=== PATIENT | female | born 1985 | race Caucasian/White ===

== ENCOUNTER 2016-12-26 13:49 | Emergency (ER) | payer OTHER ==
[~2016-12-26 13:49] MED LIST: ADVI200T PO; BACT800T5 PO; IBUP800T23 PO; PERC5TAB6 PO; advair inhaler INH
[2016-12-26] MEDS ORDERED: BACTRIM 160MG/800MG DS TAB As Ordered ONE (14:53)
[2016-12-26] MEDS ORDERED: NORCO, ANEXSIA 5/325MG TABLET (HYDROcodone/ACETAMINOPHEN) As Ordered ONE (14:53)
--- NOTE | 2016-12-26 15:00 | EDDOCDS ---
Physician Documentation [facility] Name: Karolyn Correa Age: 31 yrs Sex: Female : 1985 Arrival Date: 12/26/2016 Time: 13:49 Bed TR5 Private MD: NO PRIMARY PHYSICIAN, . Disposition: 12/26/16 14:43 Discharged to Home/Self Care. Impression: Cellulitis of right upper limb. - Condition is Stable. - Discharge Instructions: Cellulitis, Abscess, [id number]. - Prescriptions for Naprosyn 500 mg Oral Tablet - take 1 tablet by ORAL route 2 times per day take with food; 30 tablet. Bactrim DS 800- 160 mg Oral Tablet - take 2 tablet by ORAL route every 12 hours for 7 days; 28 tablet. - Medication Reconciliation, Local Pharmacy Hours form. - [facility]; When: Call to arrange an appointment; Reason: Wound/Symptom Recheck, Recheck today's complaints, Worsening of conditions, Continuance of care. - Problem is new. - Symptoms are unchanged. Historical: - Allergies: no known allergies; - Home Meds: 1. none - PMHx: Anxiety; Asthma; Bipolar disorder; Borderline Personality Disorder; Hepatitis C; Psoriasis; Substance Abuse; - PSHx: Hysterectomy; - Social history: Smoking status: Patient uses tobacco products, current every day smoker. No barriers to communication noted, The patient speaks fluent Malaysian. - : The pt / caregiver states he / she is not on anticoagulants. Home medication list is obtained from the patient. - Exposure Risk Screening:: None identified. 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 7 in. (170.18 cm); Pain 10/10; 13:52 Body Mass Index 24.75 (71.67 kg, 170.18 cm) elp MDM: 14:41 Trimethoprim-Sulfamethoxazole (MRSA dose) 160 mg-800 mg (DS) 2 tabs PO once ordered. cc10 14:41 HYDROcodone-acetaminophen 5 mg-325 mg 2 tabs PO once ordered. cc10 Administered Medications: 14:56 Drug: HYDROcodone-acetaminophen 2 tabs [hydrocodone 5 mg-acetaminophen 325 mg tablet (2 jjr tabs)] Route: PO; 14:57 Drug: Trimethoprim-Sulfamethoxazole (MRSA dose) 2 tabs [sulfamethoxazole 800 jjr mg-trimethoprim 160 mg tablet (2 tabs)] Route: PO; Signatures: Geoffrey Winchester RN RN dwg Raymond, Jessica, RN RN jMg Garcia PA-C PA-C cc10 MTDD
--- NOTE | 2016-12-26 15:00 | EDDOCDS ---
Nurse's Notes [facility] Name: Karolyn Correa Age: 31 yrs Sex: Female : 1985 Arrival Date: 12/26/2016 Time: 13:49 Bed TR5 Private MD: NO PRIMARY PHYSICIAN, . Diagnosis: Cellulitis of right upper limb Presentation: 12/26 14:05 Presenting complaint: Patient states: Large, red, raised abscess to right forearm, has dwg gotten larger for 2-3 days. No drainage. Adult Sepsis Screening: The patient does not have new or worsening altered mentation. Patient's respiratory rate is less than 22. Systolic blood pressure is greater than 100. Patient has a qSOFA score of 0- Negative Sepsis Screen. Suicide/Homicide risk assessment- the patient denies having any suicidal and/or homicidal ideations and does not present with any other emotional, behavioral or mental health complaints. 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 Transition of care: patient was not received from another setting of care. 14:05 Acuity: VJ Level 4 dwg 14:05 Method Of Arrival: Walkin/Carried/Asstd dwg Triage Assessment: 14:08 General: Appears in no apparent distress. Pain: Pain currently is 10 out of 10 on a dwg pain scale. HIV screening NA for this visit Offered previously. 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 none - PMHx: Anxiety; Asthma; Bipolar disorder; Borderline Personality Disorder; Hepatitis C; Psoriasis; Substance Abuse; - PSHx: Hysterectomy; - Social history: Smoking status: Patient uses tobacco products, current every day smoker. No barriers to communication noted, The patient speaks fluent Pashto. - : The pt / caregiver states he / she is not on anticoagulants. Home medication list is obtained from the patient. - Exposure Risk Screening:: None identified. Screenin:57 Screening information is obtained from the patient. Fall risk: No risks identified. jjr Assistance ADL's: requires no assistance with activities of daily living. Abuse/DV Screen: The patient / caregiver reports he/she is: not in a situation that causes fear, pain or injury. Nutritional screening: No deficits noted. Advance Directives: There is no active DNR order. home support is adequate. Assessment: 14:57 General: Appears in no apparent distress, Behavior is appropriate for age, this senior copywriter jjr did not observe right arm. Vital Signs: 13:52 BP 168 / 63; Pulse 93; Resp 18; Temp 97.7; Pulse Ox 98% ; Weight 71.67 kg; Height 5 ft. elp 7 in. (170.18 cm); Pain 10/10; 13:52 Body Mass Index 24.75 (71.67 kg, 170.18 cm) elp Vitals: 13:52 Log In Time: December 26, 2016 at 13:50. elp ED Course: 13:51 Patient visited by Aleta Gastelum, TORY. elp 13:51 NO PRIMARY PHYSICIAN, . is Private Physician. elp 13:51 Patient moved to Waiting elp 13:53 Patient visited by Aleta Gastelum, TORY. elp 13:53 Patient moved to Pre RCE elp 14:07 Triage Initiated dwg 14:09 Patient moved to Triage 1 dwg 14:26 [facility] cc[facility] 14:26 Snehal Gonzalez MD is Attending Physician. cc10 14:35 Patient visited by Mg Fernandez PA-C. cc10 14:35 Patient visited by Mg Fernandez PA-C. cc10 14:43 [facility] is Referral Physician. cc10 14:56 Patient moved to TR5 jjr 14:58 The patient / caregiver is instructed regarding the plan of care and ED course. jjr 14:58 No IV's were initiated during this patient's visit. No procedures done that require jjr assistance. Administered Medications: 14:56 Drug: HYDROcodone-acetaminophen 2 tabs [hydrocodone 5 mg-acetaminophen 325 mg tablet (2 jjr tabs)] Route: PO; 14:57 Drug: Trimethoprim-Sulfamethoxazole (MRSA dose) 2 tabs [sulfamethoxazole 800 jjr mg-trimethoprim 160 mg tablet (2 tabs)] Route: PO; Order Results: There are currently no results for this order. Outcome: 14:43 Discharge ordered by Provider. cc10 14:58 Discharge Assessment: patient administered narcotics - yes. Pt provided with safe jjr discharge. The following High Risk Discharge criteria are identified: None. Discharged to home ambulatory. Condition: stable. Discharge instructions given to patient, Instructed on discharge instructions, follow up and referral plans. medication usage, Demonstrated understanding of instructions, medications, Prescriptions given X 2. No special radiology studies were completed. Property sent home with patient. 14:59 Patient left the ED. santiago Signatures: Geoffrey Winchester, RN Mavis Banda RN RN jjr Patchen, Erin, TORY INSURANCE SALES REPRESENTATIVE elp Mg Fernandez, PA-C PA-C cc10 MTDD
--- NOTE | 2016-12-28 15:59 | EDDOCDS ---
Physician Documentation [facility] Name: Karolyn Correa Age: 31 yrs Sex: Female : 1985 Arrival Date: 12/26/2016 Time: 13:49 Bed TR5 Private MD: NO PRIMARY PHYSICIAN, . Disposition: 12/26/16 14:43 Discharged to Home/Self Care. Impression: Cellulitis of right upper limb. - Condition is Stable. - Discharge Instructions: Cellulitis, Abscess, [id number]. - Prescriptions for Naprosyn 500 mg Oral Tablet - take 1 tablet by ORAL route 2 times per day take with food; 30 tablet. Bactrim DS 800- 160 mg Oral Tablet - take 2 tablet by ORAL route every 12 hours for 7 days; 28 tablet. - Medication Reconciliation, Local Pharmacy Hours form. - Follow up: [facility]; When: Call to arrange an appointment; Reason: Wound/Symptom Recheck, Recheck today's complaints, Worsening of conditions, Continuance of care. - Problem is new. - Symptoms are unchanged. Historical: - Allergies: no known allergies; - Home Meds: 1. none - PMHx: Anxiety; Asthma; Bipolar disorder; Borderline Personality Disorder; Hepatitis C; Psoriasis; Substance Abuse; - PSHx: Hysterectomy; - Social history: Smoking status: Patient uses tobacco products, current every day smoker. No barriers to communication noted, The patient speaks fluent Macedonian. - : The pt / caregiver states he / she is not on anticoagulants. Home medication list is obtained from the patient. - Exposure Risk Screening:: None identified. 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 7 in. (170.18 cm); Pain 10/10; 13:52 Body Mass Index 24.75 (71.67 kg, 170.18 cm) elp MDM: 14:41 Trimethoprim-Sulfamethoxazole (MRSA dose) 160 mg-800 mg (DS) 2 tabs PO once ordered. cc10 14:41 HYDROcodone-acetaminophen 5 mg-325 mg 2 tabs PO once ordered. cc10 15:09 [facility] Payment Agreement was scanned into [employer] and attached to record. lg 17:18 T-Sheet-- Draft Copy was scanned into [employer] and attached to record. zoilar Administered Medications: 14:56 Drug: HYDROcodone-acetaminophen 2 tabs [hydrocodone 5 mg-acetaminophen 325 mg tablet (2 jjr tabs)] Route: PO; 14:57 Drug: Trimethoprim-Sulfamethoxazole (MRSA dose) 2 tabs [sulfamethoxazole 800 jjr mg-trimethoprim 160 mg tablet (2 tabs)] Route: PO; Signatures: Geoffrey Winchester, RN RN dwDon Goodrich, Fidel Reg Mavis Sewell RN RN jjr Mg Fernandez PA-C PA-C cc10 Dina Ruth The chart was reviewed and I authenticate all verbal orders and agree with the evaluation and treatment provided.Attachments: 15:09 [facility] Payment Agreement lg 17:18 T-Sheet-- Draft Copy klr Chart Complete MTDD
--- NOTE | 2016-12-28 15:59 | EDDOCDS ---
Physician Documentation [facility] Name: Karolyn Correa Age: 31 yrs Sex: Female : 1985 Arrival Date: 12/26/2016 Time: 13:49 Bed TR5 Private MD: NO PRIMARY PHYSICIAN, . Disposition: 12/26/16 14:43 Discharged to Home/Self Care. Impression: Cellulitis of right upper limb. - Condition is Stable. - Discharge Instructions: Cellulitis, Abscess, [id number]. - Prescriptions for Naprosyn 500 mg Oral Tablet - take 1 tablet by ORAL route 2 times per day take with food; 30 tablet. Bactrim DS 800- 160 mg Oral Tablet - take 2 tablet by ORAL route every 12 hours for 7 days; 28 tablet. - Medication Reconciliation, Local Pharmacy Hours form. - Follow up: [facility]; When: Call to arrange an appointment; Reason: Wound/Symptom Recheck, Recheck today's complaints, Worsening of conditions, Continuance of care. - Problem is new. - Symptoms are unchanged. Historical: - Allergies: no known allergies; - Home Meds: 1. none - PMHx: Anxiety; Asthma; Bipolar disorder; Borderline Personality Disorder; Hepatitis C; Psoriasis; Substance Abuse; - PSHx: Hysterectomy; - Social history: Smoking status: Patient uses tobacco products, current every day smoker. No barriers to communication noted, The patient speaks fluent Malian. - : The pt / caregiver states he / she is not on anticoagulants. Home medication list is obtained from the patient. - Exposure Risk Screening:: None identified. 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 7 in. (170.18 cm); Pain 10/10; 13:52 Body Mass Index 24.75 (71.67 kg, 170.18 cm) elp MDM: 14:41 Trimethoprim-Sulfamethoxazole (MRSA dose) 160 mg-800 mg (DS) 2 tabs PO once ordered. cc10 14:41 HYDROcodone-acetaminophen 5 mg-325 mg 2 tabs PO once ordered. cc10 15:09 [facility] Payment Agreement was scanned into [employer] and attached to record. lg 17:18 T-Sheet-- Draft Copy was scanned into [employer] and attached to record. zoilar Administered Medications: 14:56 Drug: HYDROcodone-acetaminophen 2 tabs [hydrocodone 5 mg-acetaminophen 325 mg tablet (2 jjr tabs)] Route: PO; 14:57 Drug: Trimethoprim-Sulfamethoxazole (MRSA dose) 2 tabs [sulfamethoxazole 800 jjr mg-trimethoprim 160 mg tablet (2 tabs)] Route: PO; Signatures: Geoffrey Winchester, RN RN dwDon Goodrich, Fidel Reg Mavis Sewell RN RN jjr Mg Fernandez PA-C PA-C cc10 Dina Ruth The chart was reviewed and I authenticate all verbal orders and agree with the evaluation and treatment provided.Attachments: 15:09 [facility] Payment Agreement lg 17:18 T-Sheet-- Draft Copy klr Chart Complete MTDD
--- NOTE | 2016-12-28 15:59 | EDDOCDS ---
Nurse's Notes [facility] Name: Karolyn Correa Age: 31 yrs Sex: Female : 1985 Arrival Date: 12/26/2016 Time: 13:49 Bed TR5 Private MD: NO PRIMARY PHYSICIAN, . Diagnosis: Cellulitis of right upper limb Presentation: 12/26 14:05 Presenting complaint: Patient states: Large, red, raised abscess to right forearm, has dwg gotten larger for 2-3 days. No drainage. Adult Sepsis Screening: The patient does not have new or worsening altered mentation. Patient's respiratory rate is less than 22. Systolic blood pressure is greater than 100. Patient has a qSOFA score of 0- Negative Sepsis Screen. Suicide/Homicide risk assessment- the patient denies having any suicidal and/or homicidal ideations and does not present with any other emotional, behavioral or mental health complaints. 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 Transition of care: patient was not received from another setting of care. 14:05 Acuity: VJ Level 4 dwg 14:05 Method Of Arrival: Walkin/Carried/Asstd dwg Triage Assessment: 14:08 General: Appears in no apparent distress. Pain: Pain currently is 10 out of 10 on a dwg pain scale. HIV screening NA for this visit Offered previously. 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 none - PMHx: Anxiety; Asthma; Bipolar disorder; Borderline Personality Disorder; Hepatitis C; Psoriasis; Substance Abuse; - PSHx: Hysterectomy; - Social history: Smoking status: Patient uses tobacco products, current every day smoker. No barriers to communication noted, The patient speaks fluent Kazakh. - : The pt / caregiver states he / she is not on anticoagulants. Home medication list is obtained from the patient. - Exposure Risk Screening:: None identified. Screenin:57 Screening information is obtained from the patient. Fall risk: No risks identified. jjr Assistance ADL's: requires no assistance with activities of daily living. Abuse/DV Screen: The patient / caregiver reports he/she is: not in a situation that causes fear, pain or injury. Nutritional screening: No deficits noted. Advance Directives: There is no active DNR order. home support is adequate. Assessment: 14:57 General: Appears in no apparent distress, Behavior is appropriate for age, this insurance underwriter jjr did not observe right arm. Vital Signs: 13:52 BP 168 / 63; Pulse 93; Resp 18; Temp 97.7; Pulse Ox 98% ; Weight 71.67 kg; Height 5 ft. elp 7 in. (170.18 cm); Pain 10/10; 13:52 Body Mass Index 24.75 (71.67 kg, 170.18 cm) elp Vitals: 13:52 Log In Time: December 26, 2016 at 13:50. elp ED Course: 13:51 Patient visited by Aleta Gastelum, TORY. elp 13:51 NO PRIMARY PHYSICIAN, . is Private Physician. elp 13:51 Patient moved to Waiting elp 13:53 Patient visited by Aleta Gastelum, TORY. elp 13:53 Patient moved to Pre RCE elp 14:07 Triage Initiated dwg 14:09 Patient moved to Triage 1 dw 14:26 [facility] cc[facility] 14:26 Snehal Gonzalez MD is Attending Physician. cc10 14:35 Patient visited by Mg Fernandez PA-C. cc10 14:35 Patient visited by Mg Fernandez PA-C. cc10 14:43 [facility] is Referral Physician. cc10 14:56 Patient moved to TR5 jjr 14:58 The patient / caregiver is instructed regarding the plan of care and ED course. jjr 14:58 No IV's were initiated during this patient's visit. No procedures done that require jjr assistance. 15:09 [facility] Payment Agreement was scanned into [employer] and attached to record. lg 17:18 T-Sheet-- Draft Copy was scanned into [employer] and attached to record. klr Administered Medications: 14:56 Drug: HYDROcodone-acetaminophen 2 tabs [hydrocodone 5 mg-acetaminophen 325 mg tablet (2 jjr tabs)] Route: PO; 14:57 Drug: Trimethoprim-Sulfamethoxazole (MRSA dose) 2 tabs [sulfamethoxazole 800 jjr mg-trimethoprim 160 mg tablet (2 tabs)] Route: PO; Order Results: There are currently no results for this order. Outcome: 14:43 Discharge ordered by Provider. cc10 14:58 Discharge Assessment: patient administered narcotics - yes. Pt provided with safe jjr discharge. The following High Risk Discharge criteria are identified: None. Discharged to home ambulatory. Condition: stable. Discharge instructions given to patient, Instructed on discharge instructions, follow up and referral plans. medication usage, Demonstrated understanding of instructions, medications, Prescriptions given X 2. No special radiology studies were completed. Property sent home with patient. 14:59 Patient left the ED. jjr Signatures: Geoffrey Winchester, RN RN Don Escudero, Reg Reg lg Mavis Sewell RN RN jjAleta Maldonado, WELDER 2ND SHIFT WELDER 2ND SHIFT pradeepp Mg Fernandez, JANAE PAArgelia cc10 Dina Ruth Chart Complete MTDRoro
== END 2016-12-26 14:59 | disposition home or self-care (01) ==
LOC: M ED 13:49
DX: L03.113 Cellulitis of right upper limb (principal); L40.9 Psoriasis, unspecified; B19.20 Unspecified viral hepatitis C without hepatic coma; F19.10 Other psychoactive substance abuse, uncomplicated; F41.9 Anxiety disorder, unspecified; F31.9 Bipolar disorder, unspecified; J45.909 Unspecified asthma, uncomplicated; F60.3 Borderline personality disorder; Z90.79 Acquired absence of other genital organ(s); F17.200 Nicotine dependence, unspecified, uncomplicated

== ENCOUNTER 2017-01-18 15:48 | Emergency (ER) | payer OTHER ==
[2017-01-18] MEDS ORDERED: PERCOCET 5MG/325MG TAB As Ordered ONE (17:05)
--- NOTE | 2017-01-18 17:17 | EDDOCDS ---
Physician Documentation [facility] Name: Karolyn Correa Age: 31 yrs Sex: Female : 1985 Arrival Date: 01/18/2017 Time: 15:48 Bed TR7 Private MD: Disposition: 01/18/17 17:05 Discharged to Home/Self Care. Impression: Cellulitis of left upper limb. - Condition is Stable. - Discharge Instructions: Cellulitis. - Prescriptions for Naprosyn 500 mg Oral Tablet - take 1 tablet by ORAL route 2 times per day take with food; 30 tablet. Bactrim DS 800- 160 mg Oral Tablet - take 2 tablet by ORAL route every 12 hours for 7 days; 28 tablet. - Medication Reconciliation form. - Follow up: [facility]; When: Call to arrange an appointment; Reason: Recheck today's complaints, Continuance of care, To establish care. - Problem is an ongoing problem. - Symptoms are unchanged. Historical: - Allergies: No known drug Allergies; - Home Meds: 1. Neurontin 300 mg Oral cap twice a day 2. ibuprofen 800 mg Oral tab 1 tab 3 times per day - PMHx: Anxiety; Asthma; Bipolar disorder; Borderline Personality Disorder; Hepatitis C; Psoriasis; Substance Abuse; - PSHx: Hysterectomy; - Social history: Smoking status: Patient uses tobacco products, heavy tobacco smoker. Patient uses IV drugs, heroin, No barriers to communication noted, The patient speaks fluent Italian, Speaks appropriately for age. - Family history: Not pertinent. - : The pt / caregiver states he / she is not on anticoagulants. Home medication list is obtained from the patient. - Exposure Risk Screening:: None identified. COPY READER: 01/18 15:59 LMP N/A - Hysterectomy b Vital Signs: 15:50 BP 135 / 79 RA Sitting (auto/reg); Pulse 80; Resp 18; Temp 97.6(O); Pulse Ox 100% on jrd R/A; Weight 74.84 kg / 164.99 lbs (R); Height 5 ft. 7 in. (170.18 cm) (R); Pain 10/10; 15:50 Body Mass Index 25.84 (74.84 kg, 170.18 cm) jrd MDM: 17:04 oxyCODONE-acetaminophen 5 mg-325 mg 1 tabs PO once ordered. cc10 Administered Medications: 17:10 Drug: oxyCODONE-acetaminophen 1 tabs [oxycodone-acetaminophen 5 mg-325 mg tablet (1 js13 tabs)] Route: PO; 17:14 Follow up: Response: Pt left department before re-evaluation is appropriate js13 Signatures: Mee ShabazzRN RN js13 Sahil Dean RN RN jmb [place], Colin PATannaC PAArgelia cc10 MTDD
--- NOTE | 2017-01-18 17:17 | EDDOCDS ---
Nurse's Notes [facility] Name: Karolyn Correa Age: 31 yrs Sex: Female : 1985 Arrival Date: 01/18/2017 Time: 15:48 Bed TR7 Private MD: Diagnosis: Cellulitis of left upper limb Presentation: 01/18 15:56 Presenting complaint: Patient states: Patient reports infection in left arm. Patient jmb reports that issues has been ongoing for three days. "it has gotten bad". Patient left arm reddened in various areas. Adult Sepsis Screening: The patient does not have new or worsening altered mentation. Patient's respiratory rate is less than 22. Systolic blood pressure is greater than 100. Patient has a qSOFA score of 0- Negative Sepsis Screen. Suicide/Homicide risk assessment- the patient denies having any suicidal and/or homicidal ideations and does not present with any other emotional, behavioral or mental health complaints. Status: Patient is not a service learning coordinator or dependent. Transition of care: patient was not received from another setting of care. 15:56 Acuity: VJ Level [address] [facility] 15:56 Method Of Arrival: Walkin/Carried/Asstd [facility] 15:59 Presenting complaint: Patient noted to have track frank on left antecubital. Patient jmb admits to drug use. 15:59 Presenting complaint: Patient states: Patient reports last use was this morning. [facility] Triage Assessment: 15:59 General: Appears in no apparent distress, Behavior is appropriate for age, cooperative, jmb Patient texting n cell phone all during triage. Patient not keeping eye contact. . Pain: Location: left arm Pain currently is 10 out of 10 on a pain scale. HIV screening NA for this visit Offered previously. Neurological: Level of Consciousness is awake, alert, obeys commands, Oriented to person, place, time, Speech is normal, Facial symmetry appears normal, Facial symmetry: tongue is midline. Respiratory: Airway is patent Respiratory effort is even, unlabored, Respiratory pattern is regular, symmetrical. Derm: Skin is pink, warm & dry. patient has track frank from IV heroin use to left antecubital area. Swollen area noted on left arm. Musculoskeletal: Range of motion intact in all extremities. 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 Neurontin 300 mg Oral cap twice a day 2. ibuprofen 800 mg Oral tab 1 tab 3 times per day - PMHx: Anxiety; Asthma; Bipolar disorder; Borderline Personality Disorder; Hepatitis C; Psoriasis; Substance Abuse; - PSHx: Hysterectomy; - Social history: Smoking status: Patient uses tobacco products, heavy tobacco smoker. Patient uses IV drugs, heroin, No barriers to communication noted, The patient speaks fluent Honduran, Speaks appropriately for age. - Family history: Not pertinent. - : The pt / caregiver states he / she is not on anticoagulants. Home medication list is obtained from the patient. - Exposure Risk Screening:: None identified. Screenin:15 Screening information is obtained from the patient. Fall risk: No risks identified. js13 Assistance ADL's: requires no assistance with activities of daily living. Abuse/DV Screen: The patient / caregiver reports he/she is: not in a situation that causes fear, pain or injury. Nutritional screening: No deficits noted. Advance Directives: There is no active DNR order. home support is adequate. Assessment: 17:15 General: Appears in no apparent distress, comfortable, Behavior is appropriate for age, js13 cooperative. Pain: Pain currently is 4 out of 10 on a pain scale. Neurological: Level of Consciousness is awake, alert. Respiratory: Airway is patent Respiratory effort is even, unlabored, Respiratory pattern is regular, symmetrical. Derm: Skin is pink, warm & dry. Vital Signs: 15:50 BP 135 / 79 RA Sitting (auto/reg); Pulse 80; Resp 18; Temp 97.6(O); Pulse Ox 100% on jrd R/A; Weight 74.84 kg (R); Height 5 ft. 7 in. (170.18 cm) (R); Pain 10/10; 15:50 Body Mass Index 25.84 (74.84 kg, 170.18 cm) rust Vitals: 15:50 Log In Time: January 18, 2017 at 15:46. rust ED Course: 15:49 Patient visited by Han [employer] PCA. jrd 15:49 Patient moved to Waiting jrlakia 15:51 Patient visited by [employer] PCA. jrd 15:51 Patient moved to Pre RCE jrd 15:57 Triage Initiated jmb 16:53 Patient moved to Triage 3 ml6 16:59 [facility] cc10 16:59 Serene Mccann MD is Attending Physician. cc10 17:00 Patient visited by Mg Fernandez PA-C. cc10 17:00 Patient visited by Mg Fernandez PA-C. cc10 17:05 [facility] is Referral Physician. cc10 17:12 Patient moved to 7 [facility] 17:15 The patient / caregiver is instructed regarding the plan of care and ED course. js13 17:15 No IV's were initiated during this patient's visit. No procedures done that require js13 assistance. Administered Medications: 17:10 Drug: oxyCODONE-acetaminophen 1 tabs [oxycodone-acetaminophen 5 mg-325 mg tablet (1 js13 tabs)] Route: PO; 17:14 Follow up: Response: Pt left department before re-evaluation is appropriate js13 Order Results: There are currently no results for this order. Outcome: 17:05 Discharge ordered by Provider. cc10 17:15 Discharge Assessment: Patient awake, alert and oriented x 3. No cognitive and/or js13 functional deficits noted. Patient verbalized understanding of disposition instructions. patient administered narcotics - yes. Pt provided with safe discharge. The following High Risk Discharge criteria are identified: None. Discharged to home ambulatory, with family. Condition: stable. Discharge instructions given to patient, Instructed on discharge instructions, follow up and referral plans. medication usage, Demonstrated understanding of instructions, medications, Pt was receptive of discharge instructions/ teaching. Prescriptions given X 2. No special radiology studies were completed. Property :Personal belongings accompany Pt. 17:16 Patient left the ED. js13 Signatures: Jesus aMtos, RN RN ml6 Beata Lema, LOBBY CONCIERGE LOBBY CONCIERGE ar3 Mee Shabazz RN RN js13 Sahil Dean RN RN jmb [place], Colin, PA-C PA-C cc10 Han Gaming, LOBBY CONCIERGE LOBBY CONCIERGE jrd MTDD
--- NOTE | 2017-01-20 18:17 | EDDOCDS ---
Physician Documentation [facility] Name: Karolyn Correa Age: 31 yrs Sex: Female : 1985 Arrival Date: 01/18/2017 Time: 15:48 Bed TR7 Private MD: Disposition: 01/18/17 17:05 Discharged to Home/Self Care. Impression: Cellulitis of left upper limb. - Condition is Stable. - Discharge Instructions: Cellulitis. - Prescriptions for Naprosyn 500 mg Oral Tablet - take 1 tablet by ORAL route 2 times per day take with food; 30 tablet. Bactrim DS 800- 160 mg Oral Tablet - take 2 tablet by ORAL route every 12 hours for 7 days; 28 tablet. - Medication Reconciliation form. - Follow up[facility]; When: Call to arrange an appointment; Reason: Recheck today's complaints, Continuance of care, To establish care. - Problem is an ongoing problem. - Symptoms are unchanged. Historical: - Allergies: No known drug Allergies; - Home Meds: 1. Neurontin 300 mg Oral cap twice a day 2. ibuprofen 800 mg Oral tab 1 tab 3 times per day - PMHx: Anxiety; Asthma; Bipolar disorder; Borderline Personality Disorder; Hepatitis C; Psoriasis; Substance Abuse; - PSHx: Hysterectomy; - Social history: Smoking status: Patient uses tobacco products, heavy tobacco smoker. Patient uses IV drugs, heroin, No barriers to communication noted, The patient speaks fluent Lithuanian, Speaks appropriately for age. - Family history: Not pertinent. - : The pt / caregiver states he / she is not on anticoagulants. Home medication list is obtained from the patient. - Exposure Risk Screening:: None identified. 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 7 in. (170.18 cm) (R); Pain 10/10; 15:50 Body Mass Index 25.84 (74.84 kg, 170.18 cm) jrd MDM: 17:04 oxyCODONE-acetaminophen 5 mg-325 mg 1 tabs PO once ordered. cc10 01/19 10:44 T-Sheet-- Draft Copy was scanned into [employer] and attached to record. gb Administered Medications: 01/18 17:10 Drug: oxyCODONE-acetaminophen 1 tabs [oxycodone-acetaminophen 5 mg-325 mg tablet (1 js13 tabs)] Route: PO; 17:14 Follow up: Response: Pt left department before re-evaluation is appropriate js13 Signatures: Martine Leon, Fidel Reg Mee MackenzieRN RN js13 Sahil DeanRN RN Mg Montiel, PA-C PA-C cc10 The chart was reviewed and I authenticate all verbal orders and agree with the evaluation and treatment provided.Attachments: 01/19 10:44 T-Sheet-- Draft Copy gb Chart Complete MTDD
--- NOTE | 2017-01-20 18:17 | EDDOCDS ---
Nurse's Notes [facility] Name: Karolyn Correa Age: 31 yrs Sex: Female : 1985 Arrival Date: 01/18/2017 Time: 15:48 Bed TR7 Private MD: Diagnosis: Cellulitis of left upper limb Presentation: 01/18 15:56 Presenting complaint: Patient states: Patient reports infection in left arm. Patient jmb reports that issues has been ongoing for three days. "it has gotten bad". Patient left arm reddened in various areas. Adult Sepsis Screening: The patient does not have new or worsening altered mentation. Patient's respiratory rate is less than 22. Systolic blood pressure is greater than 100. Patient has a qSOFA score of 0- Negative Sepsis Screen. Suicide/Homicide risk assessment- the patient denies having any suicidal and/or homicidal ideations and does not present with any other emotional, behavioral or mental health complaints. Status: Patient is not a bibliographic services specialist or dependent. Transition of care: patient was not received from another setting of care. 15:56 Acuity: VJ Level 4 [facility] 15:56 Method Of Arrival: Walkin/Carried/Asstd [facility] 15:59 Presenting complaint: Patient noted to have track frank on left antecubital. Patient jmb admits to drug use. 15:59 Presenting complaint: Patient states: Patient reports last use was this morning. [facility] Triage Assessment: 15:59 General: Appears in no apparent distress, Behavior is appropriate for age, cooperative, jmb Patient texting n cell phone all during triage. Patient not keeping eye contact. . Pain: Location: left arm Pain currently is 10 out of 10 on a pain scale. HIV screening NA for this visit Offered previously. Neurological: Level of Consciousness is awake, alert, obeys commands, Oriented to person, place, time, Speech is normal, Facial symmetry appears normal, Facial symmetry: tongue is midline. Respiratory: Airway is patent Respiratory effort is even, unlabored, Respiratory pattern is regular, symmetrical. Derm: Skin is pink, warm & dry. patient has track frank from IV heroin use to left antecubital area. Swollen area noted on left arm. Musculoskeletal: Range of motion intact in all extremities. 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 Neurontin 300 mg Oral cap twice a day 2. ibuprofen 800 mg Oral tab 1 tab 3 times per day - PMHx: Anxiety; Asthma; Bipolar disorder; Borderline Personality Disorder; Hepatitis C; Psoriasis; Substance Abuse; - PSHx: Hysterectomy; - Social history: Smoking status: Patient uses tobacco products, heavy tobacco smoker. Patient uses IV drugs, heroin, No barriers to communication noted, The patient speaks fluent Cook Islander, Speaks appropriately for age. - Family history: Not pertinent. - : The pt / caregiver states he / she is not on anticoagulants. Home medication list is obtained from the patient. - Exposure Risk Screening:: None identified. Screenin:15 Screening information is obtained from the patient. Fall risk: No risks identified. js13 Assistance ADL's: requires no assistance with activities of daily living. Abuse/DV Screen: The patient / caregiver reports he/she is: not in a situation that causes fear, pain or injury. Nutritional screening: No deficits noted. Advance Directives: There is no active DNR order. home support is adequate. Assessment: 17:15 General: Appears in no apparent distress, comfortable, Behavior is appropriate for age, js13 cooperative. Pain: Pain currently is 4 out of 10 on a pain scale. Neurological: Level of Consciousness is awake, alert. Respiratory: Airway is patent Respiratory effort is even, unlabored, Respiratory pattern is regular, symmetrical. Derm: Skin is pink, warm & dry. Vital Signs: 15:50 BP 135 / 79 RA Sitting (auto/reg); Pulse 80; Resp 18; Temp 97.6(O); Pulse Ox 100% on jrd R/A; Weight 74.84 kg (R); Height 5 ft. 7 in. (170.18 cm) (R); Pain 10/10; 15:50 Body Mass Index 25.84 (74.84 kg, 170.18 cm) [facility] Vitals: 15:50 Log In Time: January 18, 2017 at 15:46. [facility] ED Course: 15:49 Patient visited by [employer] PCA. jrd 15:49 Patient moved to Waiting jrlakia 15:51 Patient visited by [employer] PCA. jrd 15:51 Patient moved to Pre RCE jrd 15:57 Triage Initiated jmb 16:53 Patient moved to Triage 3 ml6 16:59 [facility] cc[facility] 16:59 Serene Mccann MD is Attending Physician. cc10 17:00 Patient visited by Mg Fernandez PA-C. cc10 17:00 Patient visited by Mg Fernandez PA-C. cc10 17:05 [facility] is Referral Physician. cc10 17:12 Patient moved to TR7 ar3 17:15 The patient / caregiver is instructed regarding the plan of care and ED course. js13 17:15 No IV's were initiated during this patient's visit. No procedures done that require js13 assistance. 01/19 10:44 T-Sheet-- Draft Copy was scanned into [employer] and attached to record. gb Administered Medications: 01/18 17:10 Drug: oxyCODONE-acetaminophen 1 tabs [oxycodone-acetaminophen 5 mg-325 mg tablet (1 js13 tabs)] Route: PO; 17:14 Follow up: Response: Pt left department before re-evaluation is appropriate js13 Order Results: There are currently no results for this order. Outcome: 17:05 Discharge ordered by Provider. cc10 17:15 Discharge Assessment: Patient awake, alert and oriented x 3. No cognitive and/or js13 functional deficits noted. Patient verbalized understanding of disposition instructions. patient administered narcotics - yes. Pt provided with safe discharge. The following High Risk Discharge criteria are identified: None. Discharged to home ambulatory, with family. Condition: stable. Discharge instructions given to patient, Instructed on discharge instructions, follow up and referral plans. medication usage, Demonstrated understanding of instructions, medications, Pt was receptive of discharge instructions/ teaching. Prescriptions given X 2. No special radiology studies were completed. Property :Personal belongings accompany Pt. 17:16 Patient left the ED. js13 Signatures: Martine Leon, Reg Reg Jesus Alex, RN RN ml6 Beata Lema, CHIEF ULTRASOUND TECHNOLOGIST CHIEF ULTRASOUND TECHNOLOGIST ar3 Mee ShabazzRN RN js13 Sahil Dean RN RN Mg Montiel PA-C PA-C cc10 Han Gaming, CHIEF ULTRASOUND TECHNOLOGIST CHIEF ULTRASOUND TECHNOLOGIST jrd Chart Complete MTDD
--- NOTE | 2017-01-20 18:17 | EDDOCDS ---
Physician Documentation [facility] Name: Karolyn Correa Age: 31 yrs Sex: Female : 1985 Arrival Date: 01/18/2017 Time: 15:48 Bed TR7 Private MD: Disposition: 01/18/17 17:05 Discharged to Home/Self Care. Impression: Cellulitis of left upper limb. - Condition is Stable. - Discharge Instructions: Cellulitis. - Prescriptions for Naprosyn 500 mg Oral Tablet - take 1 tablet by ORAL route 2 times per day take with food; 30 tablet. Bactrim DS 800- 160 mg Oral Tablet - take 2 tablet by ORAL route every 12 hours for 7 days; 28 tablet. - Medication Reconciliation form. - Follow up: [facility]; When: Call to arrange an appointment; Reason: Recheck today's complaints, Continuance of care, To establish care. - Problem is an ongoing problem. - Symptoms are unchanged. Historical: - Allergies: No known drug Allergies; - Home Meds: 1. Neurontin 300 mg Oral cap twice a day 2. ibuprofen 800 mg Oral tab 1 tab 3 times per day - PMHx: Anxiety; Asthma; Bipolar disorder; Borderline Personality Disorder; Hepatitis C; Psoriasis; Substance Abuse; - PSHx: Hysterectomy; - Social history: Smoking status: Patient uses tobacco products, heavy tobacco smoker. Patient uses IV drugs, heroin, No barriers to communication noted, The patient speaks fluent Tajik, Speaks appropriately for age. - Family history: Not pertinent. - : The pt / caregiver states he / she is not on anticoagulants. Home medication list is obtained from the patient. - Exposure Risk Screening:: None identified. 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 7 in. (170.18 cm) (R); Pain 10/10; 15:50 Body Mass Index 25.84 (74.84 kg, 170.18 cm) jrd MDM: 17:04 oxyCODONE-acetaminophen 5 mg-325 mg 1 tabs PO once ordered. cc10 01/19 10:44 T-Sheet-- Draft Copy was scanned into [employer] and attached to record. gb Administered Medications: 01/18 17:10 Drug: oxyCODONE-acetaminophen 1 tabs [oxycodone-acetaminophen 5 mg-325 mg tablet (1 js13 tabs)] Route: PO; 17:14 Follow up: Response: Pt left department before re-evaluation is appropriate js13 Signatures: Martine Leon, Fidel Reg Mee MackenzieRN RN js13 Sahil DeanRN RN Mg Montiel, PA-C PA-C cc10 The chart was reviewed and I authenticate all verbal orders and agree with the evaluation and treatment provided.Attachments: 01/19 10:44 T-Sheet-- Draft Copy gb Chart Complete MTDD
== END 2017-01-18 17:16 | disposition home or self-care (01) ==
LOC: M ED 15:48
DX: L03.116 Cellulitis of left lower limb (principal); F41.9 Anxiety disorder, unspecified; J45.909 Unspecified asthma, uncomplicated; F31.9 Bipolar disorder, unspecified; F60.3 Borderline personality disorder; F19.10 Other psychoactive substance abuse, uncomplicated; L40.9 Psoriasis, unspecified; Z86.19 Personal history of other infectious and parasitic diseases; Z72.0 Tobacco use; Z79.899 Other long term (current) drug therapy

== ENCOUNTER → 2017-09-01 | Outpatient (CLI) | payer OTHER, SELFPAY ==
[~2017-09-01] MED LIST changes: +IBUP1TAB7 PO; -IBUP800T23 PO; +PERC5TAB12 PO; -PERC5TAB6 PO
== END ==
LOC: M OUTALCOH 13:30
PROVIDERS: ATTEND Psychiatry & Neurology Psychiatry
DX: F11.20 Opioid dependence, uncomplicated (principal); F15.20 Other stimulant dependence, uncomplicated

== ENCOUNTER → 2018-02-21 | Outpatient (REF) | payer OTHER ==
[2018-02-21 18:14] LABS: CHLAMYDIA DNA AMPLIFICATION NEGATIVE (NEGATIVE); GC DNA AMPLIFICATION NEGATIVE (NEGATIVE)
== END ==
LOC: M LAB REF 16:25
DX: N39.0 Urinary tract infection, site not specified (principal); L02.414 Cutaneous abscess of left upper limb

== ENCOUNTER 2018-07-10 23:46 | Emergency (ER) | payer SELFPAY, OTHER ==
[2018-07-11] MEDS: LIDOCAINE 1% MDV 20ML VIAL IM (01:45)
[2018-07-11] MEDS: ADACEL/BOOSTRIX VACCINE (DIPHTH/PERTUSS/ACELL/TETANUS)0.5ML SYR (90715) IM (02:00)
[2018-07-11] MEDS: NORCO 5/325MG TABLET (BULK FOR ED) PO (02:22)
== END 2018-07-11 02:45 | disposition home or self-care (01) ==
LOC: M ED 23:46
DX: S91.312A Laceration without foreign body, left foot, initial encounter (principal); W22.8XXA Striking against or struck by other objects, initial encounter; Y92.828 Other wilderness area as the place of occurrence of the external cause
CPT/HCPCS: 90715

== ENCOUNTER 2018-07-30 13:51 | Emergency (ER) | payer SELFPAY | END 2018-07-30 16:46 | disposition left against medical advice (07) | LOC: M ED 13:51 | DX: Z53.29 Procedure and treatment not carried out because of patient's decision for other reasons (principal) ==

== ENCOUNTER 2018-08-01 00:03 | Inpatient (IN) | payer SELFPAY ==
[2018-08-01 01:26] LABS: BASO % 0.3 % (0.0-1.0); EOS # 0.2 10^3/uL (0.0-0.50); EOS % 2.4 % (0.0-3.0); HEMATOCRIT 39.1 % (36.0-47.0); HEMOGLOBIN 12.2 g/dl (12.0-15.5); IMMATURE GRANULOCYTE % 0.2 % (0-3.0); LYMPH # 2.5 10^3/uL (1.5-4.5); MEAN CORPUSCULAR HEMOGLOBIN 28.3 pg (27.0-33.0); MEAN CORPUSCULAR HGB CONC 31.2 g/dl (32.0-36.5); MEAN CORPUSCULAR VOLUME 90.7 fl (80.0-96.0); MONO % 10.3 % (0.0-5.0); NEUTROPHILS # 5.7 10^3/uL (1.8-7.7); NEUTROPHILS % 60.8 % (36.0-66.0); PLATELET COUNT, AUTOMATED 185 10^3/uL (150-450); RED BLOOD COUNT 4.31 10^6/uL (4.00-5.40); RED CELL DISTRIBUTION WIDTH 11.9 % (11.5-14.5); WHITE BLOOD COUNT 9.5 10^3/uL (4.0-10.0)
[2018-08-01] MEDS: MORPHINE 4 MG/ML 1ML VIAL/SYRINGE (J2270) IV (01:30)
[2018-08-01] MEDS: VANCOMYCIN HCL 1,000 MG, VIAL MATE ADAPTER 1 EACH in D5W 250 ML IV ×3 (01:30→17:05)
[2018-08-01] MEDS: PIPERACILLIN/TAZOBACTAM SOD 3.375 GM in D5W MINI-BAG PLUS 50 ML IV ×3 (02:34→20:26)
[2018-08-01 03:06] LABS: ANION GAP 8 MEQ/L (8-16); BLOOD UREA NITROGEN 12 MG/DL (7-18); CALCIUM LEVEL 8.9 MG/DL (8.5-10.1); CARBON DIOXIDE LEVEL 26 MEQ/L (21-32); CHLORIDE LEVEL 104 MEQ/L (98-107); CREATININE FOR GFR 0.69 MG/DL (0.55-1.30); GLOMERULAR FILTRATION RATE > 60.0 (>60); GLUCOSE, FASTING 80 MG/DL (70-100); SODIUM LEVEL 138 MEQ/L (136-145)
[2018-08-01] MEDS ORDERED: ALBUTEROL SULFATE 2.5 MG/0.5 ML INH NEB SOLN NEB (06:15)
[2018-08-01] MEDS: KETOROLAC 30 MG/ML VIAL (J1885) IV ×2 (06:19→16:00)
[2018-08-01] MEDS: ENOXAPARIN 40 MG/0.4 ML SYRINGE (J1650) SC (08:42)
[2018-08-01] MEDS ORDERED: ISOVUE-370 76% 100ML VIAL (Q9967) As Ordered (15:11)
[2018-08-01] MEDS ORDERED: ACETAMINOPHEN TAB 650MG DOSE (2X325MG) PO (20:30)
[2018-08-01] MEDS: OMEPRAZOLE 20 MG CAP PO (20:38)
[2018-08-01] MEDS: KETOROLAC TROMETHAMINE 10 MG TAB PO (20:38)
[2018-08-02] MEDS: VANCOMYCIN HCL 1,000 MG, VIAL MATE ADAPTER 1 EACH in D5W 250 ML IV ×3 (00:17→12:21)
[2018-08-02] MEDS: PIPERACILLIN/TAZOBACTAM SOD 3.375 GM in D5W MINI-BAG PLUS 50 ML IV ×3 (02:42→11:06)
[2018-08-02] MEDS: KETOROLAC TROMETHAMINE 10 MG TAB PO (06:07)
[2018-08-02 08:14] LABS: BASO % 0.3 % (0.0-1.0); EOS # 0.1 10^3/uL (0.0-0.50); EOS % 2.2 % (0.0-3.0); HEMATOCRIT 39.5 % (36.0-47.0); HEMOGLOBIN 12.7 g/dl (12.0-15.5); IMMATURE GRANULOCYTE % 0.3 % (0-3.0); LYMPH % 15.4 % (24.0-44.0); MEAN CORPUSCULAR HEMOGLOBIN 28.7 pg (27.0-33.0); MEAN CORPUSCULAR HGB CONC 32.2 g/dl (32.0-36.5); MEAN CORPUSCULAR VOLUME 89.4 fl (80.0-96.0); MONO # 0.5 10^3/uL (0.0-0.8); MONO % 7.9 % (0.0-5.0); NEUTROPHILS # 4.8 10^3/uL (1.8-7.7); NEUTROPHILS % 73.9 % (36.0-66.0); PLATELET COUNT, AUTOMATED 222 10^3/uL (150-450); RED BLOOD COUNT 4.42 10^6/uL (4.00-5.40); RED CELL DISTRIBUTION WIDTH 12.1 % (11.5-14.5); WHITE BLOOD COUNT 6.4 10^3/uL (4.0-10.0)
[2018-08-02 08:34] LABS: ALBUMIN 2.8 GM/DL (3.2-5.2); ALBUMIN/GLOBULIN RATIO 0.62 (1.00-1.93); ALKALINE PHOSPHATASE 50 U/L (45-117); ALT/SGPT 27 U/L (12-78); ANION GAP 6 MEQ/L (8-16); AST/SGOT 22 U/L (7-37); BILIRUBIN,TOTAL 0.2 MG/DL (0.2-1.0); BLOOD UREA NITROGEN 10 MG/DL (7-18); C REACTIVE PROTEIN QUANTITATIV 3.43 MG/DL (0.00-0.30); CALCIUM LEVEL 8.4 MG/DL (8.5-10.1); CARBON DIOXIDE LEVEL 27 MEQ/L (21-32); CHLORIDE LEVEL 107 MEQ/L (98-107); CREATININE FOR GFR 0.61 MG/DL (0.55-1.30); GLOMERULAR FILTRATION RATE > 60.0 (>60); GLUCOSE, FASTING 99 MG/DL (70-100); POTASSIUM SERUM 3.8 MEQ/L (3.5-5.1); SODIUM LEVEL 140 MEQ/L (136-145); TOTAL PROTEIN 7.3 GM/DL (6.4-8.2)
[2018-08-02] MEDS: ENOXAPARIN 40 MG/0.4 ML SYRINGE (J1650) SC (09:04)
[2018-08-02] MEDS ORDERED: LIDOCAINE 1% MDV 20ML VIAL As Ordered (10:19)
[2018-08-02] MEDS: SODIUM CHLORIDE 0.9% INJ 10 ML SYR IV (13:44)
[2018-08-02] MEDS ORDERED: SODIUM CHLORIDE 0.9% INJ 10 ML SYR IV (18:00)
== END 2018-08-02 16:00 | disposition left against medical advice (07) | DRG 383 ==
LOC: M ED 00:03 → M ED INP 06:11 → M MS5PR 07:50
PROC: 02HV33Z Insertion of Infusion Device into Superior Vena Cava, Percutaneous Approach (ICD-10-PCS; principal; 2018-08-02)
DX: L03.213 Periorbital cellulitis (principal); F11.10 Opioid abuse, uncomplicated; J45.20 Mild intermittent asthma, uncomplicated; F17.210 Nicotine dependence, cigarettes, uncomplicated; Z90.710 Acquired absence of both cervix and uterus; Z79.51 Long term (current) use of inhaled steroids

== ENCOUNTER 2019-10-22 18:05 | Emergency (ER) | payer SELFPAY ==
[~2019-10-22] VITALS: Ht 170.2 cm; Wt 65.9 kg
[2019-10-22 18:21] VITALS: BP 114/53
[2019-10-22] MEDS ORDERED: KETOROLAC 30 MG/ML VIAL (J1885) IV ONE (18:45)
[2019-10-22] MEDS ORDERED: ONDANSETRON 4MG/2ML VIAL (J2405) IV ONE (18:45)
[2019-10-22] MEDS ORDERED: NS 1,000 ML IV ONE (18:45)
--- NOTE | 2019-10-23 08:16 | REP ---
Clinical: Chest and abdominal pain . Comparison: 01/14/2016 . Technique: PA and lateral. Findings: The mediastinum and cardiac silhouette are normal. The lung lara are clear and without acute consolidation, effusion, or pneumothorax. The skeletal structures are intact and normal. Impression: 1. No acute cardiopulmonary process. Electronically Signed by Jose Charles MD 10/23/2019 08:07 A
== END 2019-10-22 20:46 | disposition left against medical advice (07) ==
LOC: M ED 18:05
DX: N39.0 Urinary tract infection, site not specified (principal); Z53.21 Procedure and treatment not carried out due to patient leaving prior to being seen by health care provider; J45.909 Unspecified asthma, uncomplicated; Z86.19 Personal history of other infectious and parasitic diseases; F41.9 Anxiety disorder, unspecified; F31.89 Other bipolar disorder; F17.200 Nicotine dependence, unspecified, uncomplicated

== ENCOUNTER 2019-12-25 01:25 | Emergency (ER) | payer SELFPAY ==
[~2019-12-25] VITALS: Ht 170.2 cm; Wt 68.2 kg
[2019-12-25] MEDS ORDERED: DOXYCYCLINE HYCLATE 100 MG TAB PO ONE (04:15)
[2019-12-25] MEDS ORDERED: DOXY100C37 PO (04:20)
[2019-12-25] MEDS ORDERED: KETOROLAC 60 MG/2 ML VIAL (J1885) IM ONE (04:30)
[2019-12-25 04:50] VITALS: BP 123/72
== END 2019-12-25 04:56 | disposition home or self-care (01) ==
LOC: M ED 01:25
DX: N61.1 Abscess of the breast and nipple (principal); L03.115 Cellulitis of right lower limb; F11.10 Opioid abuse, uncomplicated
CPT/HCPCS: 87070; 87077; 87186; 96372; 99283; J1885

== ENCOUNTER 2020-03-17 15:30 | Inpatient (IN) | payer SELFPAY ==
[~2020-03-17] VITALS: Ht 170.2 cm; Wt 72.7 kg
[~2020-03-17 15:30] MED LIST changes: +DOXY100C37 PO
[2020-03-17] MEDS ORDERED: ACETAMINOPHEN TAB 650MG DOSE (2X325MG) As Ordered ONE (16:00)
[2020-03-17] MEDS ORDERED: ACETAMINOPHEN TAB 650MG DOSE (2X325MG) PO ONE (16:00)
[2020-03-17 16:18] LABS: BASO % 0.2 % (0.0-1.0); EOS # 0.1 10^3/uL (0.0-0.5); EOS % 0.3 % (0.0-3.0); HEMATOCRIT 38.7 % (36.0-47.0); HEMOGLOBIN 12.3 g/dl (12.0-15.5); LYMPH # 1.1 10^3/uL (1.5-5.0); LYMPH % 5.9 % (24.0-44.0); MEAN CORPUSCULAR HEMOGLOBIN 28.5 pg (27.0-33.0); MEAN CORPUSCULAR HGB CONC 31.8 g/dl (32.0-36.5); MEAN CORPUSCULAR VOLUME 89.8 fl (80.0-96.0); MONO # 1.2 10^3/uL (0.0-0.8); MONO % 6.2 % (0.0-5.0); NEUTROPHILS # 16.1 10^3/uL (1.5-8.5); NEUTROPHILS % 87.1 % (36.0-66.0); PLATELET COUNT, AUTOMATED 296 10^3/uL (150-450); RED BLOOD COUNT 4.31 10^6/uL (4.00-5.40); WHITE BLOOD COUNT 18.5 10^3/uL (4.0-10.0)
[2020-03-17 16:33] LABS: ALBUMIN 3.3 GM/DL (3.2-5.2); ALT/SGPT 25 U/L (12-78); BILIRUBIN,DIRECT 0.2 MG/DL (0.0-0.2); BILIRUBIN,TOTAL 0.4 MG/DL (0.2-1.0); BLOOD UREA NITROGEN 10 MG/DL (7-18); C REACTIVE PROTEIN QUANTITATIV 5.46 MG/DL (0.00-0.30); CALCIUM LEVEL 8.6 MG/DL (8.5-10.1); CARBON DIOXIDE LEVEL 26 MEQ/L (21-32); CHLORIDE LEVEL 100 MEQ/L (98-107); CREATININE FOR GFR 0.74 MG/DL (0.55-1.30); GLOMERULAR FILTRATION RATE > 60.0 (>60); GLUCOSE, FASTING 148 MG/DL (70-100); POTASSIUM SERUM 3.8 MEQ/L (3.5-5.1); SODIUM LEVEL 134 MEQ/L (136-145)
[2020-03-17 16:40] LABS: ERYTHROCYTE SEDIMENTATION RATE 42 mm/hr (0-20)
--- NOTE | 2020-03-17 17:05 | REP ---
Left forearm: Two views. History: Trauma. Findings: AP and lateral views of the left forearm demonstrate normal bones, joints, and soft tissues. No fracture or subluxation is seen. Impression: Negative radiographs of the left forearm. Electronically Signed by Alireza Parker MD 03/17/2020 04:57 P
--- NOTE | 2020-03-17 17:06 | REP ---
Left elbow series: Four views. History: Trauma. Findings: Four views of the left elbow demonstrate diffuse soft tissue swelling most pronounced over and about the medial epicondyle. No fracture, subluxation, or joint effusion is seen. Impression: Medial soft tissue swelling at the elbow and distal arm. No fracture or subluxation seen. Electronically Signed by Alireza Parker MD 03/17/2020 04:58 P
--- NOTE | 2020-03-17 17:08 | REP ---
Left humerus: Two views. History: Trauma. Findings: Two views left humerus demonstrate soft tissue swelling about the medial aspect of the elbow and distal humerus. No fracture or subluxation is seen. Impression: No fracture noted. Soft tissue swelling. Electronically Signed by Alireza Parker MD 03/17/2020 05:00 P
--- NOTE | 2020-03-17 17:14 | REPVR ---
PROCEDURE INFORMATION: Exam: US Duplex Left Upper Extremity Veins, Limited Exam date and time: 03/17/2020 4:57 PM Age: 34 years old Clinical indication: Pain; Arm, upper; Left; Additional info: Left upper extremity pain R/O DVT TECHNIQUE: Imaging protocol: Real-time Duplex ultrasound of the Left Upper Extremity with 2-D barnhart scale, color Doppler flow and spectral waveform analysis with image documentation. Limited exam focused on the left upper extremity veins. COMPARISON: No relevant prior studies available. FINDINGS: Left deep veins: The left internal jugular and subclavian veins are patent and shows a normal waveform. The distal brachial vein could not be compressed due to patient intolerance, but normal color flow Doppler appears to be present, and elsewhere appears patent. Left superficial veins: The distal cephalic vein is compressible with flow but appears thick walled. The distal basilic vein could not be compressed due to patient intolerance, but normal color flow Doppler appears to be present. The proximal and mid basilic veins could not be seen, possibly secondary to edema. The proximal cephalic vein was difficult to assess due to patient involuntary movements. Soft tissues: Subcutaneous adipose edema of the forearm. Mid upper arm intramuscular irregular fluid collection measuring 2.2 cm IMPRESSION: 1. Limitations as above. No deep venous thrombus as visualized. Short interval (3 day) limited follow-up may be helpful if clinical suspicions remain high. 2. New thick-walled cephalic vein (cellulitis?) without superficial venous thrombus identified. 3. Nonspecific intramuscular fluid collection of the upper arm. Differential diagnosis would include hematoma. Clinical correlation is recommended. Electronically signed by: Marshall Dodd On 03/17/2020 17:13:49 PM
[2020-03-17] MEDS ORDERED: VANCOMYCIN HCL 1,000 MG in IV FLUID PLACE HOLDER 1 EA IV ONE (17:30)
[2020-03-17] MEDS ORDERED: PIPERACILLIN/TAZOBACTAM SOD 4.5 GM in D5W MINI-BAG PLUS 50 ML IV ONE (17:30)
[2020-03-17] MEDS ORDERED: ACETAMINOPHEN TAB 650MG DOSE (2X325MG) PO PRN (17:45)
[2020-03-17] MEDS ORDERED: MAALOX 30 ML SUSP *UDC PO PRN (17:45)
[2020-03-17] MEDS ORDERED: MOM 30ML SUSPENSION UDC PO PRN (17:45)
[2020-03-17] MEDS ORDERED: **hydrALAZINE** 10 MG TAB PO PRN (17:45)
--- NOTE | 2020-03-17 17:48 | HPEPDOC ---
General Date of Admission Date of Service: Mar 17, 2020 Primary Care Physician: A Chief Complaint The patient is a 34-year-old female admitted with a reason for visit of Left Arm Injury. Source: Patient Exam Limitations: No limitations Timing/Duration: Other (1-2 days) Severity: Moderate Associated Symptoms: Other (, pain, redness and swelling in left arm) History of Present Illness , 34 years old female with frequent admission to this hospital, history of jamaal ysubstance abuse, presented with pain and swelling of the left upper arm after shooting heroin about 2 days ago. Patient denies chest pain, shortness of breath, nausea, vomiting, diarrhea, abdominal pain, etc. Patient does not wish to stay in the hospital. She wants to sign out AMA. I had a long talk with her and explained the importance of IV antibiotics for her infection, but as per patient. She will think for a little while to the antibiotics are finished and then she will decide whether to sign out are staying the hospital Home Medications No Active Prescriptions or Reported Meds Allergies Coded Allergies: No Known Allergies (Verified , 12/25/19) Past Medical History Medical History History of mild intermittent asthma, polysubstance abuse, hepatitis C, bipolar disorder Surgical History Transabdominal hysterectomy secondary to fibroids Family History Family history reviewed. No history of diabetes or cancer Social History * Smoker: current smoker Alcohol: Denies Drugs: denies A-FIB/CHADSVASC A-FIB History Current/History of A-Fib/PAF?: No Review of Systems Constitutional: Denies: Chills, Fever, Malaise, Night Sweats, Weakness, Fatigue, Weight Loss, Lethargy, Other Eyes: Denies: Pain, Vision change, Conjunctivae inflammation, Eyelid inflammation, Redness, Other ENT: Denies: Head Aches, Ear Pain, Dysphagia, Sinus Congestion, Post Nasal Drip, Sore Throat, Epistaxis, Other Symptoms Skin: Reports: Rash, Other (swelling left upper extremity) Pulmonary: Denies: Dyspnea, Cough, Pleuritic Chest Pain, Other Symptoms Cardiovascular: Denies: Chest Pain, Palpitations, Orthopnea, Paroxysmal Noc. Dyspnea, Edema, Lt Headedness, Other Symptoms Gastrointestinal: Denies: Nausea, Vomiting, Abdominal Pain, Diarrhea, Constipation, Melena, Hematochezia, Other Symptoms Genitourinary: Denies: Dysuria, Frequency, Incontinence, Hematuria, Retention, Other Symptoms Hematologic: Denies: Bruising, Bleeding Excessively, Petecchia, Purpura, Enlarged Lymph Nodes, Other Hematologic Endocrine: Denies: Polydipsia, Polyphagia, Polyuria, Heat Intolerance, Cold Intolerance, Other Endocrine Sx Musculoskeletal: Reports: Other Symptoms (pain and swelling left upper extremity) Neurological: Denies: Weakness, Numbness, Incoordination, Change in speech, Confusion, Seizures, Other Symptoms Psych: Denies: Mood Normal, Anxiety, Depression, Memory Issues, Thoughts of Self Harm, Anger, Thoughts of Harming Other, Other Psych Physical Examination General Exam: Positive: Alert, Cooperative Eye Exam: Positive: PERRLA ENT Exam: Positive: Atraumatic, Mucous membr. moist/pink Neck Exam: Positive: Supple Chest Exam: Positive: Clear to auscultation Heart Exam: Positive: Rate Normal, Normal S1, Normal S2 Abdomen Exam: Positive: Normal bowel sounds, Soft Extremity Exam: Positive: Normal pulses Skin Exam: Positive: Other skin issue (redness. Jose Daniel left upper extremity. On the medial aspect above the elbow) Neuro Exam: Positive: Other (. Positive swelling, redness, and increased local temperature in the medial aspect on the left upper extremity above the elbow) Psych Exam: Positive: Mood NL, Oriented x 3 Vital Signs Vital Signs Date Time Temp Pulse Resp B/P (MAP) Pulse Ox O2 Delivery O2 Flow Rate FiO2 03/17/20 16:36 184/96 (125) 03/17/20 15:31 96.3 103 17 95 Room Air Laboratory Data Labs 24H Laboratory Tests 2 03/17/20 16:02: Immature Granulocyte % (Auto) 0.3, Neutrophils (%) (Auto) 87.1H, Lymphocytes (%) (Auto) 5.9L, Monocytes (%) (Auto) 6.2H, Eosinophils (%) (Auto) 0.3, Basophils (%) (Auto) 0.2, Neutrophils # (Auto) 16.1H, Lymphocytes # (Auto) 1.1L, Monocytes # (Auto) 1.2H, Eosinophils # (Auto) 0.1, Basophils # (Auto) 0.0, Nucleated Red Blood Cells % (auto) 0.0, Erythrocyte Sedimentation Rate 42H, Anion Gap 8, Glomerular Filtration Rate > 60.0, Calcium Level 8.6, Total Bilirubin 0.4, Direct Bilirubin 0.2, Aspartate Amino Transf (AST/SGOT) 37, Alanine A minotransferase (ALT/SGPT) 25, Alkaline Phosphatase 90, C-Reactive Protein, Quantitative 5.46H, Total Protein 8.0, Albumin 3.3, Albumin/Globulin Ratio 0.70L CBC/BMP Laboratory Tests 03/17/20 16:02 Microbiology Microbiology 03/17/20 Blood Culture, Received Pending 03/17/20 Blood Culture, Received Pending Problems (1) Cellulitis of left arm Status: Acute Problem Text: 34 years old female with past medical history of polysubstance abuse. She is heroin in her left arm and developed cellulitis of her left upper extremity and being admitted for further treatment. Patient's vascular studies of left upper extremity shows no DVT, elbow, humerus, radial night. X-rays did not show any fracture. Chest x-ray was not done , CRP 5.4, WBC count of 18.5, hemoglobin 12.3, hematocrit is 38.7 and platelets 296, electrolytes and BUN/creatinine are within normal range Patient's temperature 96.3, heart rate of 103, respiratory rate of 17, blood pressure 184/96, pulse ox 95% on room [facility] secondary to tachycardia Saline lock Patient did receive 1 dose of Zosyn and Vanco in ED Araya start Teflaro 600 mg IV every 12 hours Blood cultures were ordered in ED Tylenol when necessary for pain Smoking cessation counseling and nicotine replacement has been ordered DVT prophylaxis with Lovenox Diet regular Activity as tolerated Keep left upper extremity elevated (2) Elevated BP without diagnosis of hypertension Status: Acute Problem Text: Most likely secondary to infection. Plan as patient has no history of hypertension Start hydralazine 10 mg by mouth every 6 hours when necessary for systolic more than 150. Hopefully, the blood pressure will reverse back to normal once the infection and started dissipating with IV antibiotics and pain is controlled with Tylenol (3) Substance abuse Status: Chronic Problem Text: Substance abuse and abstinence from drugs. Counseling was done and all risks of IV drug injection and use were explained to her and PE. She understands very well and acknowledged Plan / VTE VTE Prophylaxis Ordered?: Yes LUCRECIA RAMIREZ MD Mar 17, 2020 17:48
[2020-03-17] MEDS ORDERED: NICOTINE 14 MG/24 HR TRANSDERMAL TD ONE (18:00)
[2020-03-17] MEDS ORDERED: VANCOMYCIN HCL 1,000 MG, VIAL MATE ADAPTER 1 EACH in D5W 250 ML IV ONE (18:00)
[2020-03-17 19:58] VITALS: BP 182/88
[2020-03-17] MEDS ORDERED: ENOXAPARIN 40MG/0.4ML SYRINGE (J1650 PER 10MG) SC SCH (21:00)
[2020-03-17] MEDS ORDERED: DOCUSATE SODIUM 100 MG CAP PO SCH (21:00)
[2020-03-18] MEDS ORDERED: CEFTAROLINE FOSAMIL 600 MG in D5W MINI-BAG PLUS 50 ML IV SCH (01:00)
--- NOTE | 2020-03-18 12:50 | DS.PDOC ---
Discharge Summary General Date of Admission Mar 17, 2020 at 17:32 Date of Discharge 03/17/20 Discharge Summary PROCEDURES PERFORMED DURING STAY: None. ADMITTING DIAGNOSES: 1. Cellulitis of left arm. DISCHARGE DIAGNOSES: 1. Cellulitis, left arm, history of IV drug abuse. COMPLICATIONS/CHIEF COMPLAINT: Cellulitis Lt Arm. HISTORY OF PRESENT ILLNESS: 34 years old female with frequent admission to this hospital, history of polysubstance abuse, presented with pain and swelling of the left upper arm after shooting heroin about 2 days ago. Patient denies chest pain, shortness of breath, nausea, vomiting, diarrhea, abdominal pain, etc. Patient does not wish to stay in the hospital. She wants to sign out AMA. I had a long talk with her and explained the importance of IV antibiotics for her infection, but as per patient. She will think for a little while to the antibiotics are finished and then she will decide whether to sign out are staying the hospital. HOSPITAL COURSE: Patient was admitted with the left upper arm cellulitis secondary to IV drug abuse. She received 1 dose of Zosyn and Vanco in ED, she was admitted to medical floor for further care, but she signed out AMA. She had been explained all the risks of signing out admit AMA, which include worsening symptoms of cellulitis, gangrene of the left arm sepsis, followed by and she understood all on my interview with her during the admission. DISCHARGE MEDICATIONS: Please see below. ALLERGIES: Please see below. PHYSICAL EXAMINATION ON DISCHARGE: Not examined. On discharge, but refer to admission H&P LABORATORY DATA: Please see below. IMAGING: As per H&P PROGNOSIS: Unknown ACTIVITY: Sign out AMA. DIET: Not applicable DISCHARGE PLAN: Signed out AMA DISPOSITION: 07 Against Medical Advice. DISCHARGE INSTRUCTIONS: 1. Sign out AMA. ITEMS TO FOLLOWUP ON ON OUTPATIENT: 1. Not applicable. DISCHARGE CONDITION: Stable. TIME SPENT ON DISCHARGE: 15 minutes. Vital Signs/I&Os Vital Signs Date Time Temp Pulse Resp B/P (MAP) Pulse Ox O2 Delivery O2 Flow Rate FiO2 03/17/20 19:58 98.1 100 20 182/88 (119) 99 Room Air I&O- Last 24 Hours up to 6 AM 03/18/20 06:00 Intake Total 320 ml Balance 320 ml Laboratory Data Labs 24H Laboratory Tests 2 03/17/20 16:02: Immature Granulocyte % (Auto) 0.3, Neutrophils (%) (Auto) 87.1H, Lymphocytes (%) (Auto) 5.9L, Monocytes (%) (Auto) 6.2H, Eosinophils (%) (Auto) 0.3, Basophils (%) (Auto) 0.2, Neutrophils # (Auto) 16.1H, Lymphocytes # (Auto) 1.1L, Monocytes # (Auto) 1.2H, Eosinophils # (Auto) 0.1, Basophils # (Auto) 0.0, Nucleated Red Blood Cells % (auto) 0.0, Erythrocyte Sedimentation Rate 42H, Anion Gap 8, Glomerular Filtration Rate > 60.0, Calcium Level 8.6, Total Bilirubin 0.4, Direct Bilirubin 0.2, Aspartate Amino Transf (AST/SGOT) 37, Alanine Aminotransferase (ALT/SGPT) 25, Alkaline Phosphatase 90, C-Reactive Protein, Ford ntitative 5.46H, Total Protein 8.0, Albumin 3.3, Albumin/Globulin Ratio 0.70L CBC/BMP Laboratory Tests 03/17/20 16:02 Microbiology Microbiology 03/17/20 Blood Culture, Received Pending 03/17/20 Blood Culture, Received Pending Discharge Medications No Active Prescriptions or Reported Meds Allergies Coded Allergies: No Known Allergies (Verified , 12/25/19) LUCRECIA RAMIREZ MD Mar 18, 2020 12:50
== END 2020-03-17 19:59 | disposition left against medical advice (07) | DRG 383 ==
LOC: M ED 15:30 → M ED INP 17:32
PROVIDERS: ADMIT Internal Medicine; ATTEND Internal Medicine
DX: L03.112 Cellulitis of left axilla (principal); F11.10 Opioid abuse, uncomplicated; R03.0 Elevated blood-pressure reading, without diagnosis of hypertension; F17.200 Nicotine dependence, unspecified, uncomplicated; J45.20 Mild intermittent asthma, uncomplicated; F31.9 Bipolar disorder, unspecified; B19.20 Unspecified viral hepatitis C without hepatic coma

== ENCOUNTER 2020-03-19 00:29 | Inpatient (IN) | payer SELFPAY ==
[~2020-03-19] VITALS: Ht 172.7 cm; Wt 75.7 kg
[2020-03-19] MEDS ORDERED: VANCOMYCIN HCL 1,000 MG, VIAL MATE ADAPTER 1 EACH in D5W 250 ML IV ONE (01:00)
[2020-03-19] MEDS ORDERED: PIPERACILLIN/TAZOBACTAM SOD 3.375 GM in D5W MINI-BAG PLUS 50 ML IV ONE (01:00)
[2020-03-19 01:46] LABS: BASO % 0.1 % (0.0-1.0); EOS # 0.1 10^3/uL (0.0-0.5); EOS % 0.4 % (0.0-3.0); HEMATOCRIT 37.4 % (36.0-47.0); HEMOGLOBIN 11.9 g/dl (12.0-15.5); LYMPH # 1.1 10^3/uL (1.5-5.0); LYMPH % 5.4 % (24.0-44.0); MEAN CORPUSCULAR HEMOGLOBIN 28.5 pg (27.0-33.0); MEAN CORPUSCULAR HGB CONC 31.8 g/dl (32.0-36.5); MEAN CORPUSCULAR VOLUME 89.7 fl (80.0-96.0); MONO % 4.8 % (0.0-5.0); NEUTROPHILS # 18.1 10^3/uL (1.5-8.5); NEUTROPHILS % 88.6 % (36.0-66.0); PLATELET COUNT, AUTOMATED 290 10^3/uL (150-450); RED BLOOD COUNT 4.17 10^6/uL (4.00-5.40); WHITE BLOOD COUNT 20.4 10^3/uL (4.0-10.0)
--- NOTE | 2020-03-19 01:53 | REP ---
Clinical: Pain with decreased range of motion . Technique: AP, lateral, bilateral oblique views of the left elbow. Findings: No acute fracture or dislocation is appreciated. Joint spaces and surrounding soft tissues appear normal. Lateral view demonstrates normal positioning to the anterior and posterior fat pads without evidence for effusion/hemarthrosis. No subcutaneous emphysema or foreign body identified. Impression: Normal left elbow radiographs. Electronically Signed by Jose Charles MD 03/19/2020 01:45 A
--- NOTE | 2020-03-19 01:53 | REP ---
Clinical: Pain . Comparison: 10/22/2019 . Findings: The mediastinum and cardiac silhouette are stable and within normal limits for portable technique. The lung lara are clear without acute consolidation, effusion, or pneumothorax. Skeletal structures are intact. Impression: No acute cardiopulmonary process appreciated. Electronically Signed by Jose Charles MD 03/19/2020 01:44 A
[2020-03-19 02:10] LABS: BLOOD UREA NITROGEN 10 MG/DL (7-18); CALCIUM LEVEL 8.4 MG/DL (8.5-10.1); CARBON DIOXIDE LEVEL 29 MEQ/L (21-32); CHLORIDE LEVEL 97 MEQ/L (98-107); CREATININE FOR GFR 0.68 MG/DL (0.55-1.30); GLOMERULAR FILTRATION RATE > 60.0 (>60); GLUCOSE, FASTING 160 MG/DL (70-100); POTASSIUM SERUM 3.4 MEQ/L (3.5-5.1); SODIUM LEVEL 132 MEQ/L (136-145)
[2020-03-19] MEDS ORDERED: IBUPROFEN 800 MG TAB As Ordered ONE (02:30)
[2020-03-19] MEDS ORDERED: ACET-683 PO (02:34)
[2020-03-19] MEDS ORDERED: IBUPROFEN 800 MG TAB PO ONE (02:45)
[2020-03-19] MEDS ORDERED: POTASSIUM CHLORIDE 10 MEQ SR TABLET PO ONE (02:45)
[2020-03-19] MEDS ORDERED: ACETAMINOPHEN TAB 650MG DOSE (2X325MG) PO PRN ×2 (02:45)
[2020-03-19] MEDS ORDERED: ACETAMINOPHEN *IV* 1,000 MG in IV 1 EA IV ONE ×2 (02:45→03:45)
[2020-03-19] MEDS ORDERED: MOM 30ML SUSPENSION UDC PO PRN (02:45)
[2020-03-19] MEDS: NS 1,000 ML IV SCH ×3 (02:46→12:46)
[2020-03-19 04:12] VITALS: BP 138/74
--- NOTE | 2020-03-19 04:29 | HPEPDOC ---
General Date of Admission Mar 19, 2020 at 02:27 Date of Service: Mar 19, 2020 Attending Physician: FATOU CORRAL MD Chief Complaint The patient is a 34-year-old female admitted with a reason for visit of Cellulitis Of Left Arm. History of Present Illness HPI: 34 yo F with hx of polysubstance use, MRSA wounds, and recently left AMA just 1 day prior for left arm cellulitis, now returns for worsening left arm pain, swelling, redness, warmth. States her last heroin IV usage was this am. Recent blood cultures from past admission on 03/17 are negative for growth at 24 hrs. She denies any trauma. Admits to associated fevers and chills. Found on this admission to have leukocytosis of 20, and fever 101. No lactic acidosis. Will be admitted for continued care and tx of her cellulitis. PMH: Hepatitis C IV heroine usage Plaque psoriasis Asthma Past Surgical Hx: Total abdominal hysterectomy and cystoscopy for fibroids D & C Family Hx: Father with DM & HTN Mother passed of cancer Social Hx: Unemployed, has children Admits to active IV heroin use Admits tobacco half pack per day since teenage years Denies alcohol ROS: Constitutional: Admits fever, chills. Denies night sweats, weight loss HEENT: Denies headache, dysphagia, neck pain/stiffness Skin: Admits left upper arm/shoulder redness swelling pain. Admits plaque psoriasis Pulmonary: Denies dyspnea, cough, wheezing Cardiac: Denies chest pain, palpitations, orthopnea, PND, edema, lightheadedness GI: Denies nausea, vomiting, abdominal pain, diarrhea, constipation, blood loss MSK: Denies new weakness or muscle damage Neurologic: Denies new numbness/tingling, loss of sensation PHYSICAL: General exam: A&O x3, mild discomfort due to arm pain HEENT: NCAT, EOMI, poor dentition, dry mucous membranes, neck supple Cardiac: tachycardic, regular rhythm, normal S1 & S2, no murmurs Respiratory: CTAB, good air exchange, no w/r/r Abdomen: soft, NT, ND, normoactive bowel sounds Extremity: 2+ radial pulses, no LE edema or calf tenderness Skin: [place], warm, dry. Red scaly plaques b/l LE shins; edema, erythema tenderness and warmth of left upper extremity, shoulder, armpit. No appreciable adenopathy and no oozing or drainage, no fluctuant mass Msk: strength 5/5 x3, 3/5 LUE due to pain, normal tone Neuro: normal speech, no focal deficits Psych: Normal mood and affect LABORATORY DATA, MICROBIOLOGY: Please see below. ASSESSMENT AND PLAN: This is a 34 yo F admitted for LUE cellulitis after leaving AMA yesterday. She returns within a day due to worsening pain ,redness, warmth of the area. Found on admission to have fever 101.3, WBC 20, significant LUE cellulitis. 1.Cellulitis LUE Area of erythema, edema, warmth, tenderness worsening past few days Fever, leukocytosis s/p Vanc, Zosyn x1 in ER continue on Ceftaroline, hx of MRSA no active wound drainage to culture. Blood cultures pending area of erythema outlined with surgical pen, monitor 2.Active IV Heroin & Tobacoo use Admits to shooting up heroin this am No signs of withdrawal Monitor on tele No echo on file ordered 3.Hx of hepatitis c Pt denies any hx of treatment HIV & Hep testing ordered with pt consent obtained o/p f/u with infectious disease 4.Hypokalemia Supplemented 5.Plaque psoriasis Not on treatment. Will give topical steroids DVT ppx: lovenox sc DISPO: admit to hospital. Monitor on abx and pending w/u. HOSPITALIST ATTENDING PHYSICIAN ADDENDUM: I have indepedently interviewed and examined the patient at the bedside, and agree with the clinical findings and management plan as documented above by my Resident Physician. The patient's questions and concerns have been satisfactorily addressed. Home Medications Scheduled PRN Acetaminophen (Acetaminophen) 500 Mg Tablet, 500 MG PO Q4H PRN for PAIN, (Report ed) Allergies Coded Allergies: No Known Allergies (Verified , 12/25/19) A-FIB/CHADSVASC A-FIB History Current/History of A-Fib/PAF?: No Vital Signs Vital Signs Date Time Temp Pulse Resp B/P (MAP) Pulse Ox O2 Delivery O2 Flow Rate FiO2 03/19/20 04:05 100.9 03/19/20 03:45 108 20 141/67 (91) 96 03/19/20 00:29 Room Air Laboratory Data Labs 24H Laboratory Tests 2 03/19/20 01:37: Immature Granulocyte % (Auto) 0.7, Neutrophils (%) (Auto) 88.6H, Lymphocytes (%) (Auto) 5.4L, Monocytes (%) (Auto) 4.8, Eosinophils (%) (Auto) 0.4, Basophils (%) (Auto) 0.1, Neutrophils # (Auto) 18.1H, Lymphocytes # (Auto) 1.1L, Monocytes # (Auto) 1.0H, Eosinophils # (Auto) 0.1, Basophils # (Auto) 0.0, Nucleated Red Blood Cells % (auto) 0.0, Anion Gap 6L, Glomerular Filtration Rate > 60.0, Lactic Acid Level 1.9, Calcium Level 8.4L CBC/BMP Laboratory Tests 03/19/20 01:37 Microbiology Microbiology 03/19/20 Blood Culture, Received Pending 03/19/20 Blood Culture, Received Pending Plan / VTE VTE Prophylaxis Ordered?: Yes KARLENE SCHULTE DO Mar 19, 2020 04:29 FATOU CORRAL MD Mar 19, 2020 06:40
[2020-03-19 06:00] VITALS: BP 136/75
[2020-03-19 07:03] LABS: MAGNESIUM LEVEL 1.8 MG/DL (1.8-2.4)
[2020-03-19] MEDS ORDERED: CEFTAROLINE FOSAMIL 600 MG in D5W MINI-BAG PLUS 50 ML IV SCH (08:00)
[2020-03-19] MEDS ORDERED: BETAMETHASONE DIP 0.05% OINT 15 GM TOP SCH (09:00)
[2020-03-19] MEDS ORDERED: ENOXAPARIN 40MG/0.4ML SYRINGE (J1650 PER 10MG) SC SCH (09:00)
[2020-03-19 09:05] LABS: ALBUMIN 2.2 GM/DL (3.2-5.2); ALT/SGPT 21 U/L (12-78); BILIRUBIN,TOTAL 0.3 MG/DL (0.2-1.0); BLOOD UREA NITROGEN 8 MG/DL (7-18); CALCIUM LEVEL 7.7 MG/DL (8.5-10.1); CARBON DIOXIDE LEVEL 25 MEQ/L (21-32); CHLORIDE LEVEL 106 MEQ/L (98-107); CREATININE FOR GFR 0.56 MG/DL (0.55-1.30); GLOMERULAR FILTRATION RATE > 60.0 (>60); GLUCOSE, FASTING 110 MG/DL (70-100); POTASSIUM SERUM 3.4 MEQ/L (3.5-5.1); SODIUM LEVEL 136 MEQ/L (136-145); TOTAL PROTEIN 6.6 GM/DL (6.4-8.2)
[2020-03-19] MEDS: KETOROLAC 30 MG/ML 1ML VIAL (J1885 PER 15MG) IV SCH ×2 (10:12→15:11)
[2020-03-19 13:27] LABS: BASO % 0.1 % (0.0-1.0); EOS # 0.2 10^3/uL (0.0-0.5); EOS % 1.2 % (0.0-3.0); HEMATOCRIT 35.3 % (36.0-47.0); HEMOGLOBIN 11.2 g/dl (12.0-15.5); LYMPH # 1.5 10^3/uL (1.5-5.0); LYMPH % 11.4 % (24.0-44.0); MEAN CORPUSCULAR HEMOGLOBIN 28.6 pg (27.0-33.0); MEAN CORPUSCULAR HGB CONC 31.7 g/dl (32.0-36.5); MEAN CORPUSCULAR VOLUME 90.3 fl (80.0-96.0); MONO # 0.9 10^3/uL (0.0-0.8); MONO % 6.5 % (0.0-5.0); NEUTROPHILS # 10.7 10^3/uL (1.5-8.5); NEUTROPHILS % 80.3 % (36.0-66.0); PLATELET COUNT, AUTOMATED 249 10^3/uL (150-450); RED BLOOD COUNT 3.91 10^6/uL (4.00-5.40); WHITE BLOOD COUNT 13.3 10^3/uL (4.0-10.0)
[2020-03-19 14:00] VITALS: BP 136/68
--- NOTE | 2020-03-19 18:58 | ECHO ---
DATE OF PROCEDURE: 03/19/2020 REFERRING PHYSICIAN: Dr. Amado Landa INDICATION: Fever. Height 173 cm, weight 74 kg. DIMENSIONS: IVS: 0.9 LV: 4.5 LVPW: 1.0 LA: 2.7 Aorta: 3.3 IVC: 1.2 mitral E wave velocity: 118 A wave: 58 E prime septal: 9.5 E prime lateral: 15.8 FINDINGS: It was only supine exam performed. In spite of it, the quality was good. The patient was in sinus rhythm with occasional premature ventricular contractions (PVCs). Left ventricle is normal size and has normal systolic function, estimated left ventricular ejection fraction (LVEF) approximately 65%. Right ventricle also appears normal size and systolic function. Both atria appear normal. All four cardiac valves were reasonably well seen and appear normal. No pericardial effusion is noted. Inferior vena cava is normal size. Aortic root and abdominal aorta appear normal. Aortic arch was not visualized. Doppler interrogation reveals competent all four cardiac valves without significant stenosis or insufficiency on any one of them. Mitral inflow pattern and tissue Doppler imaging of mitral annulus reveal normal diastolic function. CONCLUSIONS: 1. Study is of acceptable technical quality, the patient is in sinus rhythm. 2. Normal left ventricular (LV) size, systolic and diastolic function. 3. No significant valvular disease. 4. Suggestive of normal central venous pressure and normal pulmonary artery pressure. 5. Essentially normal echocardiogram. COMMENT: Study does not provide obvious explanation for fever. No vegetations were seen.
--- NOTE | 2020-03-19 19:48 | IPNPDOC ---
Date Seen The patient was seen on 03/19/20. Progress Note SUBJECTIVE: Echo done today, neg for vegetations. Spiked fever 100.9 at 4 AM, WBC improved from 20K to 13K with abx. Patient states pain still present in the LUE. BCx pending. OBJECTIVE: VITAL SIGNS: Please see below PHYSICAL EXAMINATION: General exam: A&O x3, mild discomfort due to arm pain HEENT: NCAT, EOMI, poor dentition, dry mucous membranes, neck supple Cardiac: tachycardic, regular rhythm, normal S1 & S2, no murmurs Respiratory: CTAB, good air exchange, no w/r/r Abdomen: soft, NT, ND, normoactive bowel sounds Extremity: 2+ radial pulses, no LE edema or calf tenderness Skin: [place], warm, dry. Red scaly plaques b/l LE shins- psoriatic; edema, erythema tenderness and warmth of left upper extremity still present. Not expanding past marker drawn on skin. No appreciable adenopathy and no oozing or drainage, no fluctuant mass Msk: strength 5/5 x3, 4/5 LUE due to pain, normal tone Neuro: normal speech, no focal deficits Psych: Normal mood and affect IMAGING: Echocardiogram: Neg for vegetations. LABORATORY DATA, MICROBIOLOGY: Please see below. ASSESSMENT: This is a 34 yo F admitted for LUE cellulitis after leaving [facility] . PLAN: 1.Cellulitis LUE. Area of erythema, edema, warmth, tenderness worsening past few days. Fever, leukocytosis improved. C/w Ceftaroline with hx of MRSA, BCx pending. 2.Active IV Heroin & Tobacoo use. Echo neg for vegetations. No signs of withdrawal. Tele. 3.Hx of hepatitis C. Pt denies any hx of treatment. HIV & Hep testing ordered wi th pt consent obtained. O/p f/u with infectious disease. 4.Hypokalemia. Supplemented 5.Plaque psoriasis. Not on treatment. Topical steroids. 6. DVT ppx: lovenox sc DISPOSITION: Improving leukocytosis. Plan is discharge home with f/u with PCP, ID after discharge. VS, I&O, 24H, Fishbone Vital Signs/I&O Vital Signs Date Time Temp Pulse Resp B/P (MAP) Pulse Ox O2 Delivery O2 Flow Rate FiO2 03/19/20 14:00 98.9 98 18 136/68 (90) 98 Room Air I&O- Last 24 Hours up to 6 AM 03/19/20 06:00 Intake Total 245 ml Output Total 700 ml Balance -455 ml Laboratory Data 24H LABS Laboratory Tests 2 03/19/20 01:37: Immature Granulocyte % (Auto) 0.7, Neutrophils (%) (Auto) 88.6H, Lymphocytes (%) (Auto) 5.4L, Monocytes (%) (Auto) 4.8, Eosinophils (%) (Auto) 0.4, Basophils (%) (Auto) 0.1, Neutrophils # (Auto) 18.1H, Lymphocytes # (Auto) 1.1L, Monocytes # (Auto) 1.0H, Eosinophils # (Auto) 0.1, Basophils # (Auto) 0.0, Nucleated Red Blood Cells % (auto) 0.0, Anion Gap 6L, Glomerular Filtration Rate > 60.0, Lactic Acid Level 1.9, Calcium Level 8.4L 03/19/20 04:26: Methicillin-Resist S.aureus DNA PCR DETECTEDA 03/19/20 06:28: Anion Gap 5L, Glomerular Filtration Rate > 60.0, Calcium Level 7.7L, Magnesium L evel 1.8, Total Bilirubin 0.3, Aspartate Amino Transf (AST/SGOT) 30, Alanine Aminotransferase (ALT/SGPT) 21, Alkaline Phosphatase 82, Total Protein 6.6, Albumin 2.2#L, Albumin/Globulin Ratio 0.50L 03/19/20 13:15: Immature Granulocyte % (Auto) 0.5, Neutrophils (%) (Auto) 80.3H, Lymphocytes (%) (Auto) 11.4L, Monocytes (%) (Auto) 6.5H, Eosinophils (%) (Auto) 1.2, Basophils (%) (Auto) 0.1, Neutrophils # (Auto) 10.7H, Lymphocytes # (Auto) 1.5, Monocytes # (Auto) 0.9H, Eosinophils # (Auto) 0.2, Basophils # (Auto) 0.0, Nucleated Red Blood Cells % (auto) 0.0 CBC/BMP Laboratory Tests 03/19/20 01:37 03/19/20 06:28 03/19/20 13:15 Microbiology Microbiology 03/19/20 Blood Culture, Received Pending 03/19/20 Blood Culture, Received Pending Current Medications Current Medications Medications (Trade) Dose Ordered Sig/Melany Route PRN Reason Start Time Stop Time Status Last Admin Dose Admin Acetaminophen (Tylenol Tab) 650 mg Q4H PRN PO PAIN OR FEVER 03/19/20 02:45 03/19/20 02:42 DC Acetaminophen (Tylenol Tab) 650 mg Q4HP PRN PO PAIN OR FEVER 03/19/20 02:45 03/19/20 12:50 Betamethasone Dipropionate (Diprosone) to b/l [place]... BID TOP 03/19/20 09:00 03/19/20 10:11 Ceftaroline Fosamil 600 mg/ Dextrose 50 ml @ 50 mls/hr Q12H IV 03/19/20 08:00 03/19/20 10:12 Enoxaparin Sodium (Lovenox) 40 mg DAILY SC 03/19/20 09:00 03/19/20 10:12 Home Med (Med Rec Complete!) ASDIRECTED XX 03/19/20 02:45 03/19/20 02:36 DC Ketorolac Tromethamine (ToRADol) 30 mg Q6H IV 03/19/20 09:00 03/24/20 08:59 03/19/20 15:11 Magnesium Hydroxide (Milk Of Magnesia) 30 ml DAILY PRN PO CONSTIPATION 03/19/20 02:45 Sodium Chloride 1,000 ml @ 150 mls/hr Q6H40M IV 03/19/20 02:45 03/19/20 22:44 03/19/20 12:46 Allergies Coded Allergies: No Known Allergies (Verified , 12/25/19) Katelyn Dunham MD Mar 19, 2020 19:47
[2020-03-20] MEDS ORDERED: INFLUENZA QUADRIVALENT PF VACCINE 0.5ML SYRINGE (90686) IM ONE (09:00)
== END 2020-03-19 19:40 | disposition left against medical advice (07) | DRG 383 ==
LOC: M ED 00:29 → M ED INP 02:27 → ENRESERV 03:14 → M MSPAV 04:12
PROVIDERS: ADMIT General Practice; ATTEND Internal Medicine
DX: L03.114 Cellulitis of left upper limb (principal); F11.10 Opioid abuse, uncomplicated; B19.20 Unspecified viral hepatitis C without hepatic coma; E87.6 Hypokalemia; J45.909 Unspecified asthma, uncomplicated; L40.0 Psoriasis vulgaris; F17.200 Nicotine dependence, unspecified, uncomplicated

== ENCOUNTER 2020-07-22 12:56 | Emergency (ER) | payer MEDICAID, OTHER ==
[~2020-07-22] VITALS: Ht 170.2 cm; Wt 72.7 kg
[~2020-07-22 12:56] MED LIST changes: +ACET-683 PO
[2020-07-22 12:57] VITALS: BP 128/83
[2020-07-22] MEDS ORDERED: METH10TA2 PO (13:04)
[2020-07-22] MEDS ORDERED: KETOROLAC 60MG 2ML VIAL IM ONE (15:15)
[2020-07-22 15:16] LABS: BASO % 0.4 % (0.0-1.0); EOS # 0.2 10^3/uL (0.0-0.5); EOS % 2.2 % (0.0-3.0); HEMATOCRIT 41.8 % (36.0-47.0); LYMPH # 2.5 10^3/uL (1.5-5.0); LYMPH % 30.7 % (24.0-44.0); MEAN CORPUSCULAR HEMOGLOBIN 27.8 pg (27.0-33.0); MEAN CORPUSCULAR HGB CONC 31.1 g/dl (32.0-36.5); MEAN CORPUSCULAR VOLUME 89.5 fl (80.0-96.0); MONO # 0.8 10^3/uL (0.0-0.8); MONO % 9.5 % (0.0-5.0); NEUTROPHILS # 4.7 10^3/uL (1.5-8.5); PLATELET COUNT, AUTOMATED 318 10^3/uL (150-450); RED BLOOD COUNT 4.67 10^6/uL (4.00-5.40); WHITE BLOOD COUNT 8.3 10^3/uL (4.0-10.0)
[2020-07-22 15:35] LABS: ALBUMIN 3.5 GM/DL (3.2-5.2); ALT/SGPT 29 U/L (12-78); BILIRUBIN,DIRECT < 0.1 MG/DL (0.0-0.2); BILIRUBIN,TOTAL 0.2 MG/DL (0.2-1.0); BLOOD UREA NITROGEN 13 MG/DL (7-18); C REACTIVE PROTEIN QUANTITATIV 0.56 MG/DL (0.00-0.30); CALCIUM LEVEL 9.5 MG/DL (8.5-10.1); CARBON DIOXIDE LEVEL 29 MEQ/L (21-32); CHLORIDE LEVEL 105 MEQ/L (98-107); CREATININE FOR GFR 0.63 MG/DL (0.55-1.30); GLOMERULAR FILTRATION RATE > 60.0 (>60); GLUCOSE, FASTING 90 MG/DL (70-100); LIPASE 89 U/L (73-393); POTASSIUM SERUM 4.1 MEQ/L (3.5-5.1); SODIUM LEVEL 136 MEQ/L (136-145); TOTAL PROTEIN 8.3 GM/DL (6.4-8.2)
[2020-07-22 15:47] LABS: ERYTHROCYTE SEDIMENTATION RATE 43 mm/hr (0-20)
== END 2020-07-22 17:30 | disposition home or self-care (01) ==
LOC: M ED 12:56
DX: M54.5 Low back pain (principal); B19.9 Unspecified viral hepatitis without hepatic coma; J45.909 Unspecified asthma, uncomplicated; L40.9 Psoriasis, unspecified; F17.200 Nicotine dependence, unspecified, uncomplicated; F19.10 Other psychoactive substance abuse, uncomplicated; M51.86 Other intervertebral disc disorders, lumbar region
CPT/HCPCS: 36415; 72131; 80048; 80076; 83605; 83690; 85025; 85652; 86140; 87040; 96372; 99284; J1885

== ENCOUNTER 2020-08-11 21:26 | Emergency (ER) | payer MEDICAID, OTHER ==
[~2020-08-11] VITALS: Ht 165.1 cm; Wt 83.7 kg
[~2020-08-11 21:26] MED LIST changes: +METH10TA2 PO
[2020-08-11] MEDS ORDERED: LORazepam 2 MG/ML VIAL IM STA (22:01)
[2020-08-11] MEDS ORDERED: LORazepam 2 MG/ML VIAL As Ordered ONE (22:02)
[2020-08-11 22:10] LABS: BASO % 0.2 % (0.0-1.0); EOS # 0.2 10^3/uL (0.0-0.5); EOS % 1.5 % (0.0-3.0); HEMATOCRIT 39.8 % (36.0-47.0); HEMOGLOBIN 12.4 g/dl (12.0-15.5); LYMPH # 2.7 10^3/uL (1.5-5.0); LYMPH % 26.5 % (24.0-44.0); MEAN CORPUSCULAR HEMOGLOBIN 27.7 pg (27.0-33.0); MEAN CORPUSCULAR HGB CONC 31.2 g/dl (32.0-36.5); MONO # 0.8 10^3/uL (0.0-0.8); NEUTROPHILS # 6.5 10^3/uL (1.5-8.5); NEUTROPHILS % 63.6 % (36.0-66.0); PLATELET COUNT, AUTOMATED 334 10^3/uL (150-450); RED BLOOD COUNT 4.47 10^6/uL (4.00-5.40); WHITE BLOOD COUNT 10.2 10^3/uL (4.0-10.0)
[2020-08-11 22:40] LABS: HCG, SERUM QUALITATIVE NEGATIVE (NEGATIVE); OSMOLALITY SERUM 291 MOSM/KG (275-295)
[2020-08-11 22:42] LABS: ALBUMIN 3.6 GM/DL (3.2-5.2); ALT/SGPT 26 U/L (12-78); BILIRUBIN,DIRECT 0.1 MG/DL (0.0-0.2); BILIRUBIN,TOTAL 0.3 MG/DL (0.2-1.0); BLOOD UREA NITROGEN 15 MG/DL (7-18); CALCIUM LEVEL 9.8 MG/DL (8.5-10.1); CARBON DIOXIDE LEVEL 30 MEQ/L (21-32); CHLORIDE LEVEL 104 MEQ/L (98-107); CPK CREATINE PHOSPHOKINASE 114 U/L (26-192); CREATININE FOR GFR 0.84 MG/DL (0.55-1.30); ETHYL ALCOHOL (ETHANOL) < 0.003 % (0.000-0.010); GLOMERULAR FILTRATION RATE > 60.0 (>60); GLUCOSE, FASTING 80 MG/DL (70-100); POTASSIUM SERUM 3.5 MEQ/L (3.5-5.1); SALICYLATE LEVEL 1.9 MG/DL (5.0-30.0); SODIUM LEVEL 138 MEQ/L (136-145); TOTAL PROTEIN 8.4 GM/DL (6.4-8.2)
[2020-08-12 05:36] VITALS: BP 129/64
--- NOTE | 2020-08-24 11:21 | ECGEPIP ---
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
== END 2020-08-12 05:37 | disposition home or self-care (01) ==
LOC: M ED 21:26
DX: F11.120 Opioid abuse with intoxication, uncomplicated (principal); R00.0 Tachycardia, unspecified; I45.19 Other right bundle-branch block; R94.31 Abnormal electrocardiogram [ECG] [EKG]; B19.20 Unspecified viral hepatitis C without hepatic coma; J45.909 Unspecified asthma, uncomplicated
CPT/HCPCS: 36415; 80048; 80076; 82550; 83930; 84443; 84703; 85025; 93005; 93041; 94760; 96372; 99285; G0480; J2060

== ENCOUNTER → 2022-05-21 | Outpatient (CLI) | payer OTHER ==
[~2022-05-21] MED LIST changes: +DOXY-443 PO; -DOXY100C37 PO; +METH-1177 PO; -METH10TA2 PO
== END ==
LOC: M OUTALCOH 07:43
PROVIDERS: ATTEND Psychiatry & Neurology Psychiatry
DX: Z13.39 Encounter for screening examination for other mental health and behavioral disorders (principal)

== ENCOUNTER → 2022-05-28 | Outpatient (RCR) | payer OTHER | LOC: M OUTALCOH 10:42 | PROVIDERS: ATTEND Psychiatry & Neurology Psychiatry | DX: F16.21 Hallucinogen dependence, in remission (principal); F11.21 Opioid dependence, in remission; Z72.0 Tobacco use ==

== ENCOUNTER 2022-06-25 08:36 | Outpatient (RCR) | payer OTHER | END 2022-06-28 | LOC: M OUTALCOH 08:36 | PROVIDERS: ATTEND Psychiatry & Neurology Psychiatry | DX: F16.21 Hallucinogen dependence, in remission (principal); F11.21 Opioid dependence, in remission; Z72.0 Tobacco use ==

== ENCOUNTER → 2022-07-29 | Outpatient (RCR) | payer OTHER | LOC: M OUTALCOH 07-01 10:42 | PROVIDERS: ATTEND Psychiatry & Neurology Psychiatry | DX: F16.21 Hallucinogen dependence, in remission (principal); F11.21 Opioid dependence, in remission; Z72.0 Tobacco use ==

== ENCOUNTER 2022-08-26 10:40 | Outpatient (RCR) | payer OTHER | END 2022-08-28 | LOC: M OUTALCOH 10:40 | PROVIDERS: ATTEND Psychiatry & Neurology Psychiatry | DX: F11.21 Opioid dependence, in remission (principal); F16.21 Hallucinogen dependence, in remission; Z72.0 Tobacco use ==

== ENCOUNTER 2022-09-17 13:30 | Outpatient (RCR) | payer OTHER | END 2022-09-28 | LOC: M OUTALCOH 13:30 | PROVIDERS: ATTEND Psychiatry & Neurology Psychiatry | DX: F11.21 Opioid dependence, in remission (principal); F16.21 Hallucinogen dependence, in remission; Z72.0 Tobacco use ==

== ENCOUNTER 2022-10-08 13:30 | Outpatient (RCR) | payer OTHER | END 2022-10-28 | LOC: M OUTALCOH 13:30 | PROVIDERS: ATTEND Psychiatry & Neurology Psychiatry | DX: F16.21 Hallucinogen dependence, in remission (principal); F11.21 Opioid dependence, in remission; Z72.0 Tobacco use ==

== ENCOUNTER 2022-11-11 10:35 | Outpatient (RCR) | payer OTHER | END 2022-11-28 | LOC: M OUTALCOH 10:35 | PROVIDERS: ATTEND Psychiatry & Neurology Psychiatry | DX: F11.21 Opioid dependence, in remission (principal); Z72.0 Tobacco use ==

== ENCOUNTER 2023-01-28 12:00 | Outpatient (RCR) | payer OTHER | END 2023-02-26 | LOC: M OUTALCOH 12:00 | PROVIDERS: ATTEND Psychiatry & Neurology Psychiatry | DX: F16.21 Hallucinogen dependence, in remission (principal); F11.21 Opioid dependence, in remission; Z72.0 Tobacco use ==

== ENCOUNTER 2023-05-06 22:47 | Emergency (ER) | payer OTHER ==
[~2023-05-06] VITALS: Ht 171.4 cm; Wt 83.7 kg
[2023-05-07 08:29] LABS: BASO % 0.2 % (0.0-1.0); EOS # 0.1 10^3/uL (0.0-0.5); EOS % 0.6 % (0.0-3.0); HEMATOCRIT 39.7 % (36.0-47.0); HEMOGLOBIN 12.7 g/dl (12.0-15.5); LYMPH # 1.3 10^3/uL (1.5-5.0); LYMPH % 16.2 % (24.0-44.0); MEAN CORPUSCULAR HEMOGLOBIN 28.2 pg (27.0-33.0); MONO # 0.8 10^3/uL (0.0-0.8); MONO % 9.8 % (2.0-8.0); NEUTROPHILS # 5.9 10^3/uL (1.5-8.5); PLATELET COUNT, AUTOMATED 269 10^3/uL (150-450); RED BLOOD COUNT 4.51 10^6/uL (4.00-5.40)
[2023-05-07 09:00] LABS: BLOOD UREA NITROGEN 11 MG/DL (9-23); CALCIUM LEVEL 9.1 MG/DL (8.5-10.1); CARBON DIOXIDE LEVEL 27 MMOL/L (20-31); CHLORIDE LEVEL 101 MMOL/L (98-107); CREATININE FOR GFR 0.69 MG/DL (0.55-1.30); GLOMERULAR FILTRATION RATE > 60.0 (>60); GLUCOSE, FASTING 97 MG/DL (60-100); POTASSIUM SERUM 3.8 MMOL/L (3.5-5.1); SODIUM LEVEL 136 MMOL/L (136-145)
[2023-05-07] MEDS ORDERED: DALBAVANCIN 1,500 MG in D5W 250 ML IV ONE (09:15)
[2023-05-07 11:45] VITALS: BP 147/89; TEMP 97.4; O2SAT 96
== END 2023-05-07 11:49 | disposition left against medical advice (07) ==
LOC: M ED 22:47
DX: L02.511 Cutaneous abscess of right hand (principal); F19.10 Other psychoactive substance abuse, uncomplicated; Z53.9 Procedure and treatment not carried out, unspecified reason; Z86.14 Personal history of Methicillin resistant Staphylococcus aureus infection; Z86.19 Personal history of other infectious and parasitic diseases; K21.9 Gastro-esophageal reflux disease without esophagitis; J45.909 Unspecified asthma, uncomplicated; F31.9 Bipolar disorder, unspecified
CPT/HCPCS: 36415; 80048; 85025; 87040; 96374; 99284; J0875

== ENCOUNTER 2023-05-08 21:12 | Emergency (ER) | payer OTHER ==
[~2023-05-08] VITALS: Ht 172.7 cm; Wt 83.9 kg
[2023-05-08 21:13] VITALS: BP 112/56; TEMP 96; O2SAT 97
== END 2023-05-08 22:14 | disposition left against medical advice (07) ==
LOC: M ED 21:12
DX: Z53.21 Procedure and treatment not carried out due to patient leaving prior to being seen by health care provider (principal)

== ENCOUNTER 2025-02-02 08:59 | Inpatient (IN) | payer OTHER ==
[~2025-02-02] VITALS: Ht 170.2 cm; Wt 72.7 kg
[~2025-02-02 08:59] MED LIST changes: +DOXY-441 PO; -DOXY-443 PO
[2025-02-02] MEDS: IBUPROFEN 600MG TAB PO ONE (11:26)
[2025-02-02 12:18] LABS: BASO % 0.2 % (0.0-1.0); EOS # 0.1 10^3/uL (0.0-0.5); EOS % 1.4 % (0.0-3.0); HEMATOCRIT 34.7 % (36.0-47.0); LYMPH # 1.6 10^3/uL (1.5-5.0); LYMPH % 18.6 % (24.0-44.0); MEAN CORPUSCULAR HEMOGLOBIN 27.2 pg (27.0-33.0); MEAN CORPUSCULAR HGB CONC 31.7 g/dl (32.0-36.5); MEAN CORPUSCULAR VOLUME 85.9 fl (80.0-96.0); MONO # 0.7 10^3/uL (0.0-0.8); MONO % 8.4 % (2.0-8.0); NEUTROPHILS # 6.1 10^3/uL (1.5-8.5); NEUTROPHILS % 71.1 % (36.0-66.0); PLATELET COUNT, AUTOMATED 411 10^3/uL (150-450); RED BLOOD COUNT 4.04 10^6/uL (4.00-5.40); WHITE BLOOD COUNT 8.6 10^3/uL (4.0-10.0)
[2025-02-02 12:28] LABS: KETONE, URINE AUTO RFX NEGATIVE (NEGATIVE); LEUKOCYTE ESTERASE UR AUTO RFX NEGATIVE (NEGATIVE); NITRITE, URINE AUTO RFX NEGATIVE (NEGATIVE); RBC, URINE AUTO RFX 1 /HPF (0-3); SQUAM EPITHELIAL CELL UR AURFX 4 /HPF (0-6); WBC, URINE AUTO RFX 1 /HPF (0-3)
[2025-02-02 12:31] LABS: ERYTHROCYTE SEDIMENTATION RATE 95 mm/hr (0-20)
[2025-02-02] MEDS: KETOROLAC 30 MG/ML 1ML VIAL IV ONE (12:40)
[2025-02-02 12:41] LABS: BLOOD UREA NITROGEN 6 MG/DL (9-23); C REACTIVE PROTEIN QUANTITATIV 11.55 MG/DL (<1.0); CALCIUM LEVEL 8.6 MG/DL (8.5-10.1); CARBON DIOXIDE LEVEL 31 MMOL/L (20-31); CHLORIDE LEVEL 100 MMOL/L (98-107); CREATININE FOR GFR 0.58 MG/DL (0.55-1.30); GLOMERULAR FILTRATION RATE > 60.0 (>58); GLUCOSE, FASTING 100 MG/DL (60-100); POTASSIUM SERUM 3.6 MMOL/L (3.5-5.1); SODIUM LEVEL 137 MMOL/L (136-145)
[2025-02-02 12:51] LABS: BARBITURATES URINE NEGATIVE (NEGATIVE); BENZODIAZEPINES URINE NEGATIVE (NEGATIVE); PHENCYCLIDINE URINE NEGATIVE (NEGATIVE)
[2025-02-02 12:54] LABS: AMPHETAMINES LEVEL URINE POSITIVE (NEGATIVE); CANNABINOIDS URINE POSITIVE (NEGATIVE); COCAINE METABOLITE URINE POSITIVE (NEGATIVE); METHADONE URINE POSITIVE (NEGATIVE); OPIATES URINE POSITIVE (NEGATIVE)
[2025-02-02] MEDS ORDERED: ISOVUE-370 76% 100ML VIAL As Ordered ONE (13:38)
[2025-02-02] MEDS ORDERED: METH10CO PO (14:42)
[2025-02-02] MEDS ORDERED: HOME MED LIST COMPLETE! XX SCH (14:45)
[2025-02-02 16:51] LABS: PROCALCITONIN 0.64 ng/ml
[2025-02-02 16:56] LABS: ALBUMIN 2.5 G/DL (3.2-5.2); ALKALINE PHOSPHATASE 81 U/L (35-104); ALT/SGPT 18 U/L (7.0-40); AST/SGOT 17 U/L (<34); BILIRUBIN,DIRECT < 0.1 MG/DL (<0.4); BILIRUBIN,TOTAL < 0.2 MG/DL (0.3-1.2)
[2025-02-02] MEDS: METHADONE 10MG TAB PO SCH (17:44)
[2025-02-02] MEDS: LR 1,000 ML IV SCH (17:44)
[2025-02-02] MEDS: ACETAMINOPHEN 500 MG TAB PO SCH (17:44)
[2025-02-02] MEDS ORDERED: PROHANCE 279.3MG/ML 15ML VIAL As Ordered ONE (18:19)
[2025-02-02] MEDS: VANCOMYCIN HCL 1,500 MG, VIAL MATE ADAPTER 1 EACH in NS 500 ML IV ONE (19:48)
[2025-02-02] MEDS: KETOROLAC 30 MG/ML 1ML VIAL IV SCH (20:43)
[2025-02-02] MEDS: CYCLOBENZAPRINE 5MG TABLET PO SCH (22:13)
[2025-02-02] MEDS: GABAPENTIN 100 MG CAP PO SCH (22:13)
[2025-02-03] MEDS: VANCOMYCIN HCL 1,000 MG, VIAL MATE ADAPTER 1 EACH in NS 250 ML IV SCH ×2 (02:55→22:04)
[2025-02-03] MEDS ORDERED: ALBUTEROL SULFATE 2.5MG/0.5ML INH NEB SOLN NEB PRN (10:10)
[2025-02-03] MEDS: MORPHINE 4 MG/ML 1ML VIAL IV PRN (10:19)
[2025-02-03] MEDS ORDERED: cefTRIAXone SOD 2GM VIAL IM SCH (11:00)
[2025-02-03 12:06] LABS: BASO % 0.2 % (0.0-1.0); EOS # 0.1 10^3/uL (0.0-0.5); EOS % 2.1 % (0.0-3.0); HEMATOCRIT 31.5 % (36.0-47.0); LYMPH # 0.6 10^3/uL (1.5-5.0); LYMPH % 10.2 % (24.0-44.0); MEAN CORPUSCULAR HEMOGLOBIN 27.3 pg (27.0-33.0); MEAN CORPUSCULAR HGB CONC 31.7 g/dl (32.0-36.5); MEAN CORPUSCULAR VOLUME 86.1 fl (80.0-96.0); MONO # 0.2 10^3/uL (0.0-0.8); MONO % 3.4 % (2.0-8.0); NEUTROPHILS # 4.9 10^3/uL (1.5-8.5); NEUTROPHILS % 83.6 % (36.0-66.0); PLATELET COUNT, AUTOMATED 362 10^3/uL (150-450); RED BLOOD COUNT 3.66 10^6/uL (4.00-5.40); WHITE BLOOD COUNT 5.8 10^3/uL (4.0-10.0)
[2025-02-03 12:30] LABS: BLOOD UREA NITROGEN < 5 MG/DL (9-23); CALCIUM LEVEL 8.1 MG/DL (8.5-10.1); CARBON DIOXIDE LEVEL 27 MMOL/L (20-31); CHLORIDE LEVEL 107 MMOL/L (98-107); CREATININE FOR GFR 0.55 MG/DL (0.55-1.30); GLOMERULAR FILTRATION RATE > 60.0 (>58); GLUCOSE, FASTING 81 MG/DL (60-100); POTASSIUM SERUM 4.3 MMOL/L (3.5-5.1); SODIUM LEVEL 141 MMOL/L (136-145)
[2025-02-03 13:38] LABS: HEPATITIS B SURFACE ANTIBODY NEGATIVE (POSITIVE)
[2025-02-03] MEDS: cefTRIAXone SOD 2 GM in DEXTROSE 5% (D5W) ADV/MINI-BAG 50 ML IV SCH (13:42)
[2025-02-03 13:50] LABS: HEPATITIS B SURFACE ANTIGEN NEGATIVE (NEGATIVE)
[2025-02-03 14:03] LABS: HIV 1&2 SCREEN NEGATIVE (NEGATIVE)
[2025-02-03 14:12] LABS: HEPATITIS C VIRUS ABY INDEX > 11.00 INDEX (<0.8)
[2025-02-03] MEDS ORDERED: NORCO, ANEXSIA 5/325MG TABLET (HYDROcodone/ACETAMINOPHEN) PO PRN (14:15)
[2025-02-03] MEDS ORDERED: PROMETHAZINE 25MG/ML 1ML VIAL IV PRN ×2 (14:15→18:00)
[2025-02-03] MEDS ORDERED: HYDROMORPHONE HCL 0.5 MG/ 0.5 ML SYRINGE IV PRN (14:15)
[2025-02-03] MEDS ORDERED: LR 1,000 ML IV SCH (14:15)
[2025-02-03] MEDS ORDERED: diphenhydrAMINE 50MG/ML VIAL IV PRN ×2 (14:15→18:00)
[2025-02-03] MEDS ORDERED: HYDROmorphone HCL 2MG/ML 1ML VIAL As Ordered ONE (15:49)
[2025-02-03] MEDS: HYDROMORPHONE HCL 0.5 MG/ 0.5 ML SYRINGE IV PRN ×2 (16:00→18:39)
[2025-02-03] MEDS ORDERED: MIDAZOLAM INJ 2MG/2ML VIAL As Ordered ONE (16:31)
[2025-02-03] MEDS ORDERED: propofoL 200 MG/20 ML VIAL As Ordered ONE (16:31)
[2025-02-03] MEDS ORDERED: ROCURONIUM BROMIDE 50MG/5ML VIAL As Ordered ONE (16:31)
[2025-02-03] MEDS ORDERED: LIDOCAINE 2% 100MG/5ML SDV (FOR ANES.) As Ordered ONE (16:31)
[2025-02-03] MEDS ORDERED: fentaNYL 100 MCG/2 ML INJECTION As Ordered ONE (16:32)
[2025-02-03] MEDS ORDERED: ONDANSETRON 4MG 2ML VIAL As Ordered ONE (16:53)
[2025-02-03] MEDS ORDERED: SUGAMMADEX SODIUM 500 MG/5 ML VIAL (BRIDION) As Ordered ONE (17:00)
[2025-02-03] MEDS ORDERED: ACETAMINOPHEN 1000MG/100ML IV BAG As Ordered ONE (17:07)
[2025-02-03] MEDS: NORCO, ANEXSIA 5/325MG TABLET (HYDROcodone/ACETAMINOPHEN) PO PRN (18:49)
[2025-02-03 19:45] VITALS: BP 143/81; TEMP 97.2; O2SAT 98
[2025-02-03 20:00] VITALS: BP 142/79; TEMP 97; O2SAT 96
[2025-02-03] MEDS: LR 1,000 ML IV SCH (20:15)
[2025-02-03 20:30] VITALS: BP 142/78; TEMP 97.5; O2SAT 97
[2025-02-03 21:30] VITALS: BP 142/80; TEMP 97.5; O2SAT 98
[2025-02-03 22:30] VITALS: BP 139/81; TEMP 97.3; O2SAT 98
[2025-02-03 23:30] VITALS: BP 140/81; TEMP 97.7; O2SAT 98
[2025-02-04 00:30] VITALS: BP 130/79; TEMP 97.7; O2SAT 93
[2025-02-04 04:30] VITALS: BP 140/68; TEMP 97; O2SAT 96
[2025-02-04 06:16] LABS: BASO % 0.1 % (0.0-1.0); EOS % 0.1 % (0.0-3.0); HEMOGLOBIN 9.1 g/dl (12.0-15.5); LYMPH # 1.1 10^3/uL (1.5-5.0); LYMPH % 14.2 % (24.0-44.0); MEAN CORPUSCULAR HEMOGLOBIN 26.8 pg (27.0-33.0); MEAN CORPUSCULAR HGB CONC 31.4 g/dl (32.0-36.5); MEAN CORPUSCULAR VOLUME 85.5 fl (80.0-96.0); MONO # 0.3 10^3/uL (0.0-0.8); MONO % 3.6 % (2.0-8.0); NEUTROPHILS # 6.2 10^3/uL (1.5-8.5); NEUTROPHILS % 81.3 % (36.0-66.0); PLATELET COUNT, AUTOMATED 428 10^3/uL (150-450); RED BLOOD COUNT 3.39 10^6/uL (4.00-5.40); WHITE BLOOD COUNT 7.6 10^3/uL (4.0-10.0)
[2025-02-04 06:37] LABS: C REACTIVE PROTEIN QUANTITATIV 5.31 MG/DL (<1.0)
[2025-02-04 06:40] LABS: BLOOD UREA NITROGEN 8 MG/DL (9-23); CARBON DIOXIDE LEVEL 28 MMOL/L (20-31); CHLORIDE LEVEL 104 MMOL/L (98-107); CREATININE FOR GFR 0.52 MG/DL (0.55-1.30); GLOMERULAR FILTRATION RATE > 60.0 (>58); GLUCOSE, FASTING 85 MG/DL (60-100); POTASSIUM SERUM 4.4 MMOL/L (3.5-5.1); SODIUM LEVEL 138 MMOL/L (136-145)
[2025-02-04 08:24] VITALS: BP 140/69; TEMP 97.5; O2SAT 99
[2025-02-04 12:00] VITALS: BP 100/63; TEMP 97.3; O2SAT 99
[2025-02-04 13:18] LABS: ERYTHROCYTE SEDIMENTATION RATE 72 mm/hr (0-20)
[2025-02-04] MEDS: CEFTAROLINE FOSAMIL 600 MG in DEXTROSE 5% (D5W) ADV/MINI-BAG 50 ML IV SCH (15:07)
[2025-02-04 20:03] VITALS: BP 150/78; TEMP 97.9; O2SAT 99
[2025-02-05 03:38] VITALS: BP 123/63; TEMP 97.7; O2SAT 98
[2025-02-05 06:02] LABS: BASO % 0.2 % (0.0-1.0); EOS # 0.1 10^3/uL (0.0-0.5); EOS % 1.1 % (0.0-3.0); HEMATOCRIT 29.4 % (36.0-47.0); HEMOGLOBIN 9.2 g/dl (12.0-15.5); LYMPH # 2.2 10^3/uL (1.5-5.0); LYMPH % 23.1 % (24.0-44.0); MEAN CORPUSCULAR HEMOGLOBIN 27.2 pg (27.0-33.0); MEAN CORPUSCULAR HGB CONC 31.3 g/dl (32.0-36.5); MONO # 0.7 10^3/uL (0.0-0.8); MONO % 7.5 % (2.0-8.0); NEUTROPHILS # 6.4 10^3/uL (1.5-8.5); NEUTROPHILS % 67.6 % (36.0-66.0); PLATELET COUNT, AUTOMATED 456 10^3/uL (150-450); RED BLOOD COUNT 3.38 10^6/uL (4.00-5.40); WHITE BLOOD COUNT 9.5 10^3/uL (4.0-10.0)
[2025-02-05 06:27] LABS: C REACTIVE PROTEIN QUANTITATIV 3.62 MG/DL (<1.0)
[2025-02-05 06:35] LABS: BLOOD UREA NITROGEN 9 MG/DL (9-23); CALCIUM LEVEL 8.1 MG/DL (8.5-10.1); CARBON DIOXIDE LEVEL 27 MMOL/L (20-31); CHLORIDE LEVEL 104 MMOL/L (98-107); CREATININE FOR GFR 0.66 MG/DL (0.55-1.30); GLOMERULAR FILTRATION RATE > 60.0 (>58); GLUCOSE, FASTING 95 MG/DL (60-100); POTASSIUM SERUM 5.4 MMOL/L (3.5-5.1); SODIUM LEVEL 138 MMOL/L (136-145)
[2025-02-05] MEDS: FUROSEMIDE 20MG/2ML VIAL IV ONE (09:42)
[2025-02-05 11:50] LABS: PROCALCITONIN 0.47 ng/ml
[2025-02-05 12:00] VITALS: BP 122/64; TEMP 97; O2SAT 98
[2025-02-05 12:27] LABS: INR 1.03; PROTHROMBIN TIME 13.8 SECONDS (12.5-14.5)
[2025-02-05] MEDS ORDERED: HEPARIN SOD (PORCINE) 5000UNITS/ML 1ML VIAL/SYRINGE SQ SCH (13:55)
[2025-02-05] MEDS: PATIROMER SORBITEX CALCIUM 8.4 GM POWDER PACKET (VELTASSA) PO ONE (16:49)
[2025-02-05 19:58] VITALS: BP 123/63; TEMP 97.7; O2SAT 98
[2025-02-06] VITALS (9 sets, daily range): BP systolic 108–137; BP diastolic 57–93; TEMP 97.2–97.9; O2SAT 92–100
[2025-02-06 10:02] LABS: HCV RNA QUANTITATION <15 NOT DETECTED IU/mL (NOT DETECTED); HCV RNA log10 <1.18 NOT DETECTED Log IU/mL (NOT DETECTED)
[2025-02-06] MEDS: METAMUCIL (PSYLLIUM) PACKET PO SCH (11:03)
[2025-02-06] MEDS: MIRALAX *UNIT DOSE* 17GM PACKET PO SCH (11:03)
[2025-02-06 11:34] LABS: BASO % 0.2 % (0.0-1.0); EOS # 0.2 10^3/uL (0.0-0.5); EOS % 1.7 % (0.0-3.0); HEMATOCRIT 30.4 % (36.0-47.0); HEMOGLOBIN 9.2 g/dl (12.0-15.5); LYMPH # 2.2 10^3/uL (1.5-5.0); LYMPH % 21.7 % (24.0-44.0); MEAN CORPUSCULAR HEMOGLOBIN 26.5 pg (27.0-33.0); MEAN CORPUSCULAR HGB CONC 30.3 g/dl (32.0-36.5); MEAN CORPUSCULAR VOLUME 87.6 fl (80.0-96.0); MONO # 0.8 10^3/uL (0.0-0.8); MONO % 7.6 % (2.0-8.0); NEUTROPHILS % 68.2 % (36.0-66.0); PLATELET COUNT, AUTOMATED 434 10^3/uL (150-450); RED BLOOD COUNT 3.47 10^6/uL (4.00-5.40); WHITE BLOOD COUNT 10.3 10^3/uL (4.0-10.0)
[2025-02-06 12:08] LABS: C REACTIVE PROTEIN QUANTITATIV 6.56 MG/DL (<1.0)
[2025-02-06 12:20] LABS: BLOOD UREA NITROGEN 14 MG/DL (9-23); CALCIUM LEVEL 8.5 MG/DL (8.5-10.1); CARBON DIOXIDE LEVEL 29 MMOL/L (20-31); CHLORIDE LEVEL 101 MMOL/L (98-107); CREATININE FOR GFR 0.63 MG/DL (0.55-1.30); GLOMERULAR FILTRATION RATE > 60.0 (>58); GLUCOSE, FASTING 94 MG/DL (60-100); POTASSIUM SERUM 4.5 MMOL/L (3.5-5.1); SODIUM LEVEL 137 MMOL/L (136-145)
[2025-02-06] MEDS ORDERED: KETOROLAC 60MG 2ML VIAL As Ordered ONE (14:24)
[2025-02-06] MEDS: LIDOCAINE 1% SDV 30ML VIAL As Ordered ONE (14:31)
[2025-02-06] MEDS ORDERED: ONDANSETRON 4MG 2ML VIAL IV PRN (14:45)
[2025-02-06] MEDS: oxyCODONE 5MG TAB PO PRN (15:03)
[2025-02-06] MEDS: HYDROMORPHONE HCL 0.5 MG/ 0.5 ML SYRINGE IV PRN (15:04)
[2025-02-06] MEDS: fentaNYL 100 MCG/2 ML INJECTION IV PRN (15:17)
[2025-02-06] MEDS: SENOKOT S TAB PO SCH (15:46)
[2025-02-06] MEDS: CLOBETASOL PROP 0.05% OINT 30 GM TOP SCH (15:48)
[2025-02-07 01:00] VITALS: BP 135/78; TEMP 97.7; O2SAT 95
[2025-02-07 04:48] VITALS: BP 133/79; TEMP 97.7; O2SAT 93
[2025-02-07 06:00] LABS: BASO % 0.1 % (0.0-1.0); EOS % 0.1 % (0.0-3.0); HEMATOCRIT 27.2 % (36.0-47.0); HEMOGLOBIN 8.6 g/dl (12.0-15.5); LYMPH # 1.7 10^3/uL (1.5-5.0); LYMPH % 12.6 % (24.0-44.0); MEAN CORPUSCULAR HGB CONC 31.6 g/dl (32.0-36.5); MEAN CORPUSCULAR VOLUME 85.5 fl (80.0-96.0); MONO # 0.9 10^3/uL (0.0-0.8); MONO % 6.7 % (2.0-8.0); NEUTROPHILS % 79.7 % (36.0-66.0); RED BLOOD COUNT 3.18 10^6/uL (4.00-5.40); WHITE BLOOD COUNT 13.8 10^3/uL (4.0-10.0)
[2025-02-07 06:07] LABS: PLATELET COUNT, AUTOMATED 546 10^3/uL (150-450)
[2025-02-07 06:25] LABS: C REACTIVE PROTEIN QUANTITATIV 8.84 MG/DL (<1.0)
[2025-02-07 06:26] LABS: BLOOD UREA NITROGEN 12 MG/DL (9-23); CALCIUM LEVEL 8.7 MG/DL (8.5-10.1); CARBON DIOXIDE LEVEL 27 MMOL/L (20-31); CHLORIDE LEVEL 102 MMOL/L (98-107); CREATININE FOR GFR 0.58 MG/DL (0.55-1.30); GLOMERULAR FILTRATION RATE > 60.0 (>58); GLUCOSE, FASTING 122 MG/DL (60-100); POTASSIUM SERUM 4.8 MMOL/L (3.5-5.1); SODIUM LEVEL 137 MMOL/L (136-145)
[2025-02-07 08:00] VITALS: BP 124/66; TEMP 97.2; O2SAT 94
[2025-02-07 12:00] VITALS: BP 127/76; TEMP 97.7; O2SAT 98
[2025-02-07 12:53] LABS: CPK CREATINE PHOSPHOKINASE 35 U/L (34-145)
[2025-02-07] MEDS: HEPARIN SOD (PORCINE) 5000UNITS/ML 1ML VIAL/SYRINGE SQ SCH (14:36)
[2025-02-07] MEDS: DAPTOmycin 700 MG in NS 50 ML IV SCH (15:25)
[2025-02-07] MEDS: LORazepam 2 MG/ML 1ML VIAL IV ONE (17:55)
[2025-02-07] MEDS ORDERED: PROHANCE 279.3MG/ML 5ML VIAL As Ordered ONE (20:30)
[2025-02-07 21:30] VITALS: BP 114/55; TEMP 97.9; O2SAT 97
[2025-02-08 03:31] VITALS: BP 115/56; TEMP 97.7; O2SAT 97
[2025-02-08 05:54] LABS: BASO % 0.3 % (0.0-1.0); EOS # 0.1 10^3/uL (0.0-0.5); EOS % 1.4 % (0.0-3.0); HEMATOCRIT 27.7 % (36.0-47.0); HEMOGLOBIN 8.3 g/dl (12.0-15.5); LYMPH % 31.7 % (24.0-44.0); MEAN CORPUSCULAR HEMOGLOBIN 26.7 pg (27.0-33.0); MEAN CORPUSCULAR VOLUME 89.1 fl (80.0-96.0); MONO # 0.7 10^3/uL (0.0-0.8); MONO % 7.8 % (2.0-8.0); NEUTROPHILS # 5.4 10^3/uL (1.5-8.5); NEUTROPHILS % 57.6 % (36.0-66.0); PLATELET COUNT, AUTOMATED 531 10^3/uL (150-450); RED BLOOD COUNT 3.11 10^6/uL (4.00-5.40); WHITE BLOOD COUNT 9.3 10^3/uL (4.0-10.0)
[2025-02-08 06:21] LABS: BLOOD UREA NITROGEN 16 MG/DL (9-23); C REACTIVE PROTEIN QUANTITATIV 4.05 MG/DL (<1.0); CALCIUM LEVEL 8.6 MG/DL (8.5-10.1); CARBON DIOXIDE LEVEL 29 MMOL/L (20-31); CHLORIDE LEVEL 103 MMOL/L (98-107); CREATININE FOR GFR 0.64 MG/DL (0.55-1.30); GLOMERULAR FILTRATION RATE > 60.0 (>58); GLUCOSE, FASTING 95 MG/DL (60-100); POTASSIUM SERUM 4.7 MMOL/L (3.5-5.1); SODIUM LEVEL 138 MMOL/L (136-145)
[2025-02-08] MEDS ORDERED: SODIUM CHLORIDE 0.9% INJ 10 ML SYR IV PRN (11:20)
[2025-02-08 12:00] VITALS: BP 121/59; TEMP 97.2; O2SAT 96
[2025-02-08 17:14] LABS: MAGNESIUM LEVEL 1.9 MG/DL (1.8-2.4)
[2025-02-08] MEDS: SODIUM CHLORIDE 0.9% INJ 10 ML SYR IV SCH (17:52)
[2025-02-08 20:00] VITALS: BP 108/59; TEMP 97.5; O2SAT 96
[2025-02-09 04:00] VITALS: BP 108/53; TEMP 97.7; O2SAT 95
[2025-02-09 06:46] LABS: C REACTIVE PROTEIN QUANTITATIV 2.65 MG/DL (<1.0)
[2025-02-09 07:17] LABS: BLOOD UREA NITROGEN 14 MG/DL (9-23); CALCIUM LEVEL 8.4 MG/DL (8.5-10.1); CARBON DIOXIDE LEVEL 28 MMOL/L (20-31); CHLORIDE LEVEL 102 MMOL/L (98-107); CREATININE FOR GFR 0.53 MG/DL (0.55-1.30); GLOMERULAR FILTRATION RATE > 60.0 (>58); GLUCOSE, FASTING 98 MG/DL (60-100); POTASSIUM SERUM 4.6 MMOL/L (3.5-5.1); SODIUM LEVEL 137 MMOL/L (136-145)
[2025-02-09 07:21] LABS: BASO % 0.4 % (0.0-1.0); EOS # 0.2 10^3/uL (0.0-0.5); EOS % 1.8 % (0.0-3.0); HEMATOCRIT 27.3 % (36.0-47.0); HEMOGLOBIN 8.5 g/dl (12.0-15.5); LYMPH # 3.4 10^3/uL (1.5-5.0); LYMPH % 33.3 % (24.0-44.0); MEAN CORPUSCULAR HEMOGLOBIN 27.6 pg (27.0-33.0); MEAN CORPUSCULAR HGB CONC 31.1 g/dl (32.0-36.5); MEAN CORPUSCULAR VOLUME 88.6 fl (80.0-96.0); MONO # 0.8 10^3/uL (0.0-0.8); MONO % 8.1 % (2.0-8.0); NEUTROPHILS # 5.5 10^3/uL (1.5-8.5); NEUTROPHILS % 54.4 % (36.0-66.0); PLATELET COUNT, AUTOMATED 600 10^3/uL (150-450); RED BLOOD COUNT 3.08 10^6/uL (4.00-5.40); WHITE BLOOD COUNT 10.1 10^3/uL (4.0-10.0)
[2025-02-09 12:00] VITALS: BP 124/59; TEMP 97.3; O2SAT 97
[2025-02-09] MEDS: MORPHINE 2 MG/ML 1ML VIAL IV PRN (12:19)
[2025-02-09 20:25] VITALS: BP 125/61; TEMP 97.7; O2SAT 99
[2025-02-09] MEDS: ENOXAPARIN 40MG/0.4ML SYRINGE (J1650 PER 10MG) SC SCH (20:30)
[2025-02-10 03:30] VITALS: BP 117/60; TEMP 97.5; O2SAT 98
== END 2025-02-10 08:19 | disposition left against medical advice (07) | DRG 383 ==
LOC: EDBD 08:59 → M ED 08:59 → M ED INP 16:14 → M MSPAV 02-03 19:45
PROVIDERS: ADMIT Student in an Organized Health Care Education/Training Program; ATTEND Internal Medicine
PROC: 0JBM0ZZ Excision of Left Upper Leg Subcutaneous Tissue and Fascia, Open Approach (ICD-10-PCS; 2025-02-03)
PROC: 0JBL0ZZ Excision of Right Upper Leg Subcutaneous Tissue and Fascia, Open Approach (ICD-10-PCS; principal; 2025-02-03 17:00)
PROC: 0JBL0ZZ Excision of Right Upper Leg Subcutaneous Tissue and Fascia, Open Approach (ICD-10-PCS; 2025-02-06)
PROC: 0JBM0ZZ Excision of Left Upper Leg Subcutaneous Tissue and Fascia, Open Approach (ICD-10-PCS; 2025-02-06)
DX: L03.115 Cellulitis of right lower limb (principal); I33.9 Acute and subacute endocarditis, unspecified; L97.129 Non-pressure chronic ulcer of left thigh with unspecified severity; L97.119 Non-pressure chronic ulcer of right thigh with unspecified severity; E87.5 Hyperkalemia; L40.8 Other psoriasis; J45.909 Unspecified asthma, uncomplicated; Z87.891 Personal history of nicotine dependence; F12.90 Cannabis use, unspecified, uncomplicated; F15.90 Other stimulant use, unspecified, uncomplicated; F14.90 Cocaine use, unspecified, uncomplicated; Z79.899 Other long term (current) drug therapy; I34.0 Nonrheumatic mitral (valve) insufficiency; F11.90 Opioid use, unspecified, uncomplicated; B18.2 Chronic viral hepatitis C; K59.00 Constipation, unspecified; B95.5 Unspecified streptococcus as the cause of diseases classified elsewhere; B95.62 Methicillin resistant Staphylococcus aureus infection as the cause of diseases classified elsewhere; B95.61 Methicillin susceptible Staphylococcus aureus infection as the cause of diseases classified elsewhere; L03.116 Cellulitis of left lower limb; L02.415 Cutaneous abscess of right lower limb; L02.416 Cutaneous abscess of left lower limb

== ENCOUNTER 2025-02-10 08:29 | Outpatient (CLI) | payer OTHER ==
[~2025-02-10 08:29] MED LIST changes: +METH10CO PO
[2025-02-10] MEDS: DALBAVANCIN 1,500 MG in D5W 250 ML IV ONE (08:55)
[2025-02-10] MEDS: NEOSPORIN OINT 0.9 GM PKT TOP ONE (10:21)
== END 2025-02-10 09:49 | disposition home or self-care (01) ==
LOC: M OPCLI4PV 08:29 → M MSPAV 08:29 → M OPCLI4PV 09:49
PROVIDERS: ATTEND Internal Medicine
DX: A49.02 Methicillin resistant Staphylococcus aureus infection, unspecified site (principal); L02.416 Cutaneous abscess of left lower limb; L97.929 Non-pressure chronic ulcer of unspecified part of left lower leg with unspecified severity
CPT/HCPCS: 96365; J0875